=== PATIENT | female | born 1935 | race Caucasian/White ===

== ENCOUNTER → 2017-06-11 13:15 | Outpatient (CLI) | payer MEDICARE, OTHER, SELFPAY ==
--- NOTE | 2017-06-11 13:33 | CT_ITS ---
CT head/brain wo con HISTORY: ITS.REASON: ACUTE POST RAUMATIC HEADACHE, DIPLOPIA ORDERING PHYSICIAN: Jamison Hodges MD PATIENT AGE: 82 years COMPARISON: None TECHNIQUE: Axial images obtained without contrast. Brain and bone windows reviewed. FINDINGS: No midline shift, mass effect, intracranial hemorrhage, hydrocephalus, or extra-axial fluid collection is evident. Low-density changes are present in periventricular and subcortical region consistent with ischemic gliotic change from microvascular disease. The calvarium has an unremarkable appearance. No mastoid effusion. No sinus air-fluid levels.. IMPRESSION: 1. No acute finding. 2. Chronic microvascular ischemic gliotic changes.
== END ==
PROVIDERS: PCP Internal Medicine Adolescent Medicine; Visit Provider Internal Medicine Adolescent Medicine
DX: G44.319 Acute post-traumatic headache, not intractable (principal); H53.2 Diplopia
CPT/HCPCS: 70450

== ENCOUNTER → 2017-08-13 09:48 | Outpatient (CLI) | payer MEDICARE, OTHER, SELFPAY ==
--- NOTE | 2017-08-13 09:55 | MM_ITS ---
MM Dig screening mamm BI w/CAD CAD Screening COMPARISON: Analog mammograms from [facility] 11/13/2012 INDICATION: There is no personal or family history of breast cancer. There is been previous biopsy right breast for benign disease. TECHNIQUE: Standard CC and MLO images were obtained. R2 CAD reviewed. FINDINGS: The breasts are composed primarily of fat with minimal scattered fibroglandular densities in each breast. There are somewhat less in adequate compression of the left MLO image likely due to the cardiac pacemaker seen in the axillary tail of the breast. There is faint arterial calcification in each breast, there is a mole marker left breast. There is no suspicious lesion and no suspicious microcalcifications. IMPRESSION: Fatty type breast parenchyma with no suspicious lesion seen BI-RADS Category: 2 Benign Finding(s) RECOMMENDED FOLLOW-UP: 1YR - 1 YEAR FOLLOW-UP (A letter has been sent to the patient regarding results of the study.)
== END ==
PROVIDERS: PCP Internal Medicine Adolescent Medicine; Visit Provider Nurse Practitioner Family
DX: Z12.31 Encounter for screening mammogram for malignant neoplasm of breast (principal)
CPT/HCPCS: 77067

== ENCOUNTER → 2018-01-15 12:30 | Outpatient (CLI) | payer MEDICARE, OTHER, SELFPAY ==
--- NOTE | 2018-01-15 12:32 | CA_ITS ---
PROCEDURE: 2-D M-mode and color Doppler study INDICATIONS FOR THE TEST: Chest pain COPD+ Heart Murmur Tobacco Smokingex Palpitations Fatigue Syncope Edema Hypertension+Diabetes Mellitus Rheumatic Fever SOB+OBRIEN Obesity Hyperlipidemia+ Family History HD Additional History O2, Pacemaker, ablation PATIENT INFORMATION HEIGHT: 63 WEIGHT: 183 GENDER: Female B/P: 118/52 2-D/M-MODE INTERPRETATION: 2-D MEASUREMENTS OBSERVED VALUES IN CMS Right Ventricular Dimension (RVDd) 3.6 Interventricular Septum (Thickness)(IVsd) 1.1 Left Ventricular Internal Dimensions(LVIDd) 4.8 Left Ventricular Posterior Wall (Thickness)(LVPWd) 1.0 Aortic Root 3.2 Aortic Cusp Separation 2.2 Left Atrial Dimensions (LAD) 4.0 2D 1. Left atrium is moderately enlarged, left ventricle is normal size, mild concentric left ventricular hypertrophy, visually estimated ejection fraction 55% with no obvious regional wall motion abnormality. 2. The right atrium and right ventricle are moderately enlarged with normal contractility, there is a pacemaker lead seen in the right atrium and right ventricle. 3. The aortic valve is thickened and fibrosed, leaflet continue to display mobility. 4. The mitral and tricuspid valve leaflets are minimally thickened. 5. The pulmonic valve is poorly visualized. 6. No significant pericardial effusion noted. DOPPLER INTERROGATION: Doppler interrogation of the aortic, mitral and tricuspid valvular presence of moderate aortic, moderate mitral and mild tricuspid regurgitation, calculated right ventricular systolic pressure is 40 mmHg consistent with mild pulmonary hypertension, diastolic parameters are inconclusive. CONCLUSION: 1. Moderately enlarged left atrium, normal left ventricular size, mild concentric left ventricular hypertrophy, visually estimated ejection fraction 55% with no obvious regional wall motion abnormality, diastolic parameters are inconclusive. 2. Moderately enlarged right ventricle with normal contractility. 3. Moderate aortic, moderate mitral and mild tricuspid regurgitation, calculated right ventricular systolic pressure is 40 mmHg consistent with mild pulmonary hypertension. 4. No significant pericardial effusion noted.
== END ==
PROVIDERS: PCP Internal Medicine Adolescent Medicine; Visit Provider Internal Medicine
DX: R06.09 Other forms of dyspnea (principal)
CPT/HCPCS: 93306

== ENCOUNTER → 2018-02-18 11:48 | Outpatient (CLI) | payer MEDICARE, OTHER, SELFPAY ==
[2018-02-18 12:05] LABS: Basophils % 0.6 % (0.1-2.0); Eosinophils # 0.2 K/mm3 (0.0-0.4); Eosinophils % 2.7 % (0.1-12.0); Hematocrit 36.3 % (37.0-47.0); Hemoglobin 11.3 g/dL (12.2-16.2); Lymphocytes # 1.1 K/mm3 (0.7-4.5); Lymphocytes % 15.7 K/mm3 (10-50); Mean Corpuscular HGB Conc 31.1 g/dL (31.8-35.4); Mean Corpuscular Hemoglobin 31.7 pg (27.0-31.2); Mean Platelet Volume 9.1 fl (7.4-10.4); Monocytes # 0.3 K/mm3 (0.1-1.0); Monocytes % 4.2 % (1.7-9.3); Neutrophils # 5.2 K/mm3 (1.8-7.8); Neutrophils % 76.9 % (37.0-80.0); Platelet Count 184 K/mm3 (142-424); Red Blood Count 3.56 M/mm3 (4.20-5.40); Red Cell Distribution Width 13.8 % (11.5-17.5); White Blood Count 6.8 K/mm3 (4.8-10.8)
[2018-02-18 14:54] LABS: Anion Gap 14.9 mEq/L (5-15); Blood Urea Nitrogen 38 mg/dL (7-18); Calcium 8.9 mg/dL (8.5-10.1); Carbon Dioxide 25 mmol/L (21.0-32.0); Chloride 111 mmol/L (98-107); Creatinine,Serum 2.37 mg/dL (0.55-1.02); Estimated Glomerular Filt Rate 20 ml/min (>60); GFR (African American) 24 ML/MIN (>60); Glucose 134 mg/dL (74-106); Potassium 5.9 mmoL/L (3.5-5.1); Sodium 145 mmol/L (136-145)
== END ==
PROVIDERS: PCP Internal Medicine Adolescent Medicine; Visit Provider Physician Assistant
DX: I11.9 Hypertensive heart disease without heart failure (principal); I42.9 Cardiomyopathy, unspecified; I48.91 Unspecified atrial fibrillation; Z95.0 Presence of cardiac pacemaker; I50.43 Acute on chronic combined systolic (congestive) and diastolic (congestive) heart failure; I34.0 Nonrheumatic mitral (valve) insufficiency
CPT/HCPCS: 36415; 80048; 83880; 85025

== ENCOUNTER 2018-03-15 15:28 | Inpatient (IN) ==
[2018-03-15 16:08] LABS: Basophils % 0.3 % (0.1-2.0); Eosinophils # 0.1 K/mm3 (0.0-0.4); Eosinophils % 1.8 % (0.1-12.0); Hematocrit 30.7 % (37.0-47.0); Hemoglobin 9.4 g/dL (12.2-16.2); Lymphocytes % 13.7 K/mm3 (10-50); Mean Corpuscular HGB Conc 30.8 g/dL (31.8-35.4); Mean Corpuscular Hemoglobin 29.9 pg (27.0-31.2); Mean Corpuscular Volume 97.4 fl (81-99); Mean Platelet Volume 7.8 fl (7.4-10.4); Monocytes # 0.3 K/mm3 (0.1-1.0); Monocytes % 4.7 % (1.7-9.3); Neutrophils # 5.6 K/mm3 (1.8-7.8); Neutrophils % 79.5 % (37.0-80.0); Platelet Count 315 K/mm3 (142-424); Red Blood Count 3.15 M/mm3 (4.20-5.40); Red Cell Distribution Width 14.8 % (11.5-17.5)
[2018-03-15 16:27] LABS: Alanine Aminotransferase 13 U/L (12-78); Albumin Level 2.9 gm/dL (3.4-5.0); Albumin/Globulin Ratio 0.7 (1.1-1.8); Alkaline Phosphatase 142 U/L (46-116); Anion Gap 15.9 mEq/L (5-15); Aspartate Amino Transferase 10 U/L (15-37); Bilirubin,Total 0.5 mg/dL (0.2-1.0); Blood Urea Nitrogen 12 mg/dL (7-18); Calcium 8.2 mg/dL (8.5-10.1); Carbon Dioxide 27 mmol/L (21.0-32.0); Chloride 105 mmol/L (98-107); Glucose 128 mg/dL (74-106); Potassium 3.9 mmoL/L (3.5-5.1); Sodium 144 mmol/L (136-145); Total Protein,Serum 6.9 gm/dL (6.4-8.2)
--- NOTE | 2018-03-15 16:27 | Emergency Department Note ---
ED Disposition Clinical Impression: Community acquired pneumonia Qualifiers: Laterality: right Lung location: lower lobe of lung Qualified Code(s): J18.1 - Lobar pneumonia, unspecified organism Disposition: Still a Patient Condition on Discharge: Fair - Critical Care Critical Care Time: No Attestation: On 03/15/18, the high probability of a clinically significant, sudden or life threatening deterioration of the following system(s) required my full and direct attention, intervention and personal management. The time I documented below is in addition to time spent performing reported procedures but includes the following listed in this critical care notation. Medical Decision Making - Ramesh Inquiry Pt receiving controlled substance: No Vital Signs: 03/15/18 15:29 03/15/18 16:23 Temperature 100.3 F H Temperature Source Oral Pulse Rate [Left Radial] 71 73 Respiratory Rate 22 Blood Pressure [Right Arm] 123/69 121/81 Blood Pressure Mean [Right Arm] 87 94 Blood Pressure Source [Right Arm] Automatic Cuff Automatic Cuff Blood Pressure Position [Right Arm] Sitting Sitting 02 Sat by Pulse Oximetry 96 93 L Oxygen Delivery Method Nasal Cannula Room Air Oxygen Flow Rate (LPM) 3 - Lab Data Lab Results 03/15/18 15:50: WBC 7.0, RBC 3.15 L, Hgb 9.4 L, Hct 30.7 L, MCV 97.4, MCH 29.9, MCHC 30.8 L, RDW 14.8, Plt Count 315, MPV 7.8, Neut % (Auto) 79.5, Lymph % (Auto) 13.7, [place] % (Auto) 4.7, Eos % (Auto) 1.8, Baso % (Auto) 0.3, Neut # (Auto) 5.6, Lymph # (Auto) 1.0, [place] # (Auto) 0.3, Eos # (Auto) 0.1, Baso # (Auto) 0.0 03/15/18 15:50: Sodium 144, Potassium 3.9, Chloride 105, Carbon Dioxide 27, Anion Gap 15.9 H, BUN 12, Creatinine 1.74 H, Estimated Creat Clear 34, Estimated GFR 28 L, Est GFR ( Amer) 34 L, Glucose 128 H, Calcium 8.2 L, Total Bilirubin 0.5, AST 10 L, ALT 13, Alkaline Phosphatase 142 H, Troponin I < 0.02, Total Protein 6.9, Albumin 2.9 L, Globulin 4.0 H, Albumin/Globulin Ratio 0.7 L 03/15/18 15:50: Lactate 2.0 Result diagrams: 03/15/18 15:50 03/15/18 15:50 Orders (Tests/Meds): ORDERS Category Date Time Status XR chest portable Stat Exams 03/15/18 15:36 Taken Blood Culture Stat Micro 03/15/18 16:24 Ordered - Radiology Data #1 Image(s): Chest Image Reviewed: Yes I reviewed the patient's radiology image Right basilar infiltrate - ECG Data Tracing #1 EKG interpreted by Kevin Chen MD: Rhythm: Ventricular paced rhythm Rate: 70 No evidence of acute ischemia or injury - Physician Consults Physician Consulted: Galo Hodges Time: 16:43 Reason -: Admission Comment/Response: Agrees to admit the patient to the hospital. We discussed the patient's clinical information, including history, exam, laboratory and radiology results and ED course. Per hospital procedure, I will write temporary bridge inpatient orders on the patient. Specific orders requested by the admitting physician: Antibiotics, nebulizer treatments. No steroids at this time. General Adult HPI - General Chief complaint: Shortness of Breath/Dyspnea Stated complaint: sob Time Seen by Provider: 03/15/18 16:27 Mode of Arrival: EMS Limitations: No Limitations Description of Symptoms (Recalled from ER Triage Doc. by RN): to ed per squad with c/o cough,sob "always short of breath" x 1 week wears o2 24/7. +fever at home, denies sick contacts. - History of Present Illness HPI narrative: 2-week history of cough and URI symptoms. Short of breath. Has a fever. Seen in this emergency room on 03/01/18. Chest x-ray negative. Treated with Augmentin and cough medication. Has not seen PCP since then. Getting worse over the past week. - Related Data Home Medications Medication Instructions Recorded Confirmed aspirin 81 mg tablet,delayed 81 mg PO QDAY 06/24/17 03/15/18 release ferrous sulfate 325 mg (65 mg 325 mg PO QDAY tab 06/24/17 03/15/18 iron) tablet glimepiride 2 mg tablet 2 mg PO BID tab 06/24/17 03/15/18 budesonide-formoterol HFA 160 2 puff INHALATION Q12H 03/20/18 10/13/18 mcg-4.5 mcg/actuation aerosol inhaler diltiazem ER 60 mg 60 mg PO BID 08/20/17 03/15/18 capsule,extended release 12 hr omeprazole 20 mg capsule,delayed 20 mg PO DAILY cap 08/20/17 03/15/18 release diazePAM [Valium] 2 mg PO BID PRN 12/15/17 03/15/18 furosemide 20 mg tablet 20 mg PO DAILY 03/04/18 03/15/18 Allergies Allergy/AdvReac Type Severity Reaction Status Date / Time alendronate sodium Allergy Mild DIZZINESS Verified 03/04/18 08:42 [From Fosamax] naproxen Allergy Mild SEDATION Verified 03/04/18 08:42 Sulfa (Sulfonamide Allergy Mild NA-NAUSEA Verified 03/04/18 08:42 Antibiotics) hydrocodone [From LORTAB] Allergy Unknown Verified 03/04/18 08:42 [facility] History I have reviewed the patient's past medical history: Yes Medical History: Reports:: Atrial Fibrillation, Cardiomyopathy, Chronic Obstructive Pulmonary Disease (COPD), Diabetes Mellitus Type 2, Home Oxygen, Hyperlipidemia, Internal Pacemaker Denies:: Cancer, Diabetes Mellitus Type 1, MRSA, Seizures Other Surgeries: Yes: Hysterectomy-Total, Pacemaker, Other ([facility]) Amputation: No Fractures: No - Social History Smoking Status: Former smoker Alcohol Intake: never Alcohol Intake Frequency:: 3 or more drinks per day Occupational Status: retired - Psychiatric History Expresses thoughts of harming self/others: None Suicide Plan Description: No Plan Family Hx:: Coronary Artery Disease, Heart Attack ROS Obtained: Yes All systems reviewed & no additional complaints - Constitutional Constitutional: Reports fatigue, Reports fever(s), Reports malaise, Reports weakness - ENT Ears, Nose, Mouth, and Throat: Reports nasal discharge, Reports sore throat - Cardiovascular Cardiovascular: Reports chest pain (Pleuritic) - Respiratory Respiratory: Yes cough, Yes dyspnea Physical Exam - General General appearance: alert, in no apparent distress Comment: Frequent cough - Head Head exam: atraumatic, normocephalic, normal inspection - Eye Eye exam: Present: normal appearance, PERRL, EOMI - ENT ENT exam: Present: mucous membranes moist - Neck Neck exam: Present: normal inspection, full ROM, trachea midline. Absent: meningismus, lymphadenopathy - Chest Chest inspection: Present: normal inspection, symmetric chest wall rise. Ab sent: tenderness - Respiratory Respiratory exam: Present: normal lung sounds bilaterally. Absent: respiratory distress, wheezes - Cardiovascular Cardiovascular exam: Present: regular rate, normal rhythm. Absent: JVD - Abdominal Exam Abdominal exam: Present: soft, normal bowel sounds. Absent: distention, tenderness, guarding - Extremities Exam Extremities exam: Present: normal inspection, full ROM, normal capillary refill - Neurological Exam Neurological exam: Present: alert, oriented X3 - Psychiatric Psychiatric exam: Present: normal affect, normal mood - Skin Skin exam: Present: warm, dry, intact, normal color - Lymphatic Lymphatic Findings: no adenopathy
[2018-03-15 22:01] LABS: Coronavirus 229E Not Detected (NotDetected); Coronavirus NL63 Not Detected (NotDetected); Coronavirus OC43 Not Detected (NotDetected); Coronovirus HKU1,PCR Not Detected (NotDetected)
--- NOTE | 2018-03-16 07:16 | History & Physical Report ---
*Admission Date: 03/15/18 *Chief complaint: Cough with shortness of breath *History of present illness: 83-year-old female with COPD presented to the emergency department with worsening cough and shortness of breath. Patient had been seen in the emergency department approximately 2 weeks earlier and diagnosed with a URI. At that time her x-ray was negative for infiltrate. Upon return to the emergency department yesterday patient admitted that she felt worse and had had low-grade fevers at home to 100.9. She had a dry hacking cough that was nonproductive. Chest x-ray showed a right lower lobe infiltrate. White blood cell count was normal. Patient is O2 dependent at home and oxygen saturations were in the low 90s. Patient was admitted for IV antibiotics. This morning she states she "feels terrible". She has not slept well due to her cough. She feels weak. [facility] History I have reviewed the patient's past medical history: Yes Medical History: Reports:: Atrial Fibrillation, Cardiomyopathy, Chronic Obstructive Pulmonary Disease (COPD), Diabetes Mellitus Type 2, Home Oxygen, Hyperlipidemia, Internal Pacemaker Denies:: Cancer, Diabetes Mellitus Type 1, MRSA, Seizures Other Surgeries: Yes: Hysterectomy-Total, Pacemaker, Other ([facility]) Amputation: No Fractures: No - *Social History Educational Level: Completed Grade School Smoking Status: Former smoker Alcohol Intake: never Alcohol Intake Frequency:: 3 or more drinks per day Occupational Status: retired - Psychiatric History Expresses thoughts of harming self/others: None Suicide Plan Description: No Plan *Family Hx:: Coronary Artery Disease, Heart Attack Review of Systems - Constitutional Reports body ache(s), Reports fever(s), Reports headache(s), Denies chills - *Cardiovascular Denies chest pain - *Respiratory Reports cough, Reports shortness of breath, Reports shortness of breath with activity, Reports wheezing - *Gastrointestinal Denies abdominal pain - *Musculoskeletal Reports joint pain - *Neurologic Reports weakness Meds Home Medications Medication Instructions Recorded Confirmed Type aspirin 81 mg tablet,delayed 81 mg PO QDAY 06/24/17 03/15/18 History release ferrous sulfate 325 mg (65 mg 325 mg PO QDAY tab 06/24/17 03/15/18 History iron) tablet glimepiride 2 mg tablet 2 mg PO BID tab 06/24/17 03/15/18 History budesonide-formoterol HFA 160 2 puff INHALATION Q12H 08/20/17 03/15/18 History mcg-4.5 mcg/actuation aerosol inhaler diltiazem ER 60 mg 60 mg PO BID 08/20/17 03/15/18 History capsule,extended release 12 hr omeprazole 20 mg capsule,delayed 20 mg PO DAILY cap 08/20/17 03/15/18 History release diazePAM [Valium] 2 mg PO BID PRN 12/15/17 03/15/18 History furosemide 20 mg tablet 20 mg PO DAILY 03/04/18 03/15/18 History Allergies Allergy/AdvReac Type Severity Reaction Status Date / Time alendronate sodium Allergy Mild DIZZINESS Verified 03/04/18 08:42 [From Fosamax] naproxen Allergy Mild SEDATION Verified 03/04/18 08:42 Sulfa (Sulfonamide Allergy Mild NA-NAUSEA Verified 03/04/18 08:42 Antibiotics) hydrocodone [From LORTAB] Allergy Unknown Verified 03/04/18 08:42 Exam Vital signs and Labs for Last 24 Hours: Temp Pulse Resp BP Pulse Ox 98.8 F 70 21 98/57 L 96 03/16/18 04:00 03/16/18 06:34 03/16/18 04:00 03/16/18 04:00 03/16/18 06:34 Laboratory Results - last 24 hr 03/15/18 15:50: WBC 7.0, RBC 3.15 L, Hgb 9.4 L, Hct 30.7 L, MCV 97.4, MCH 29.9, MCHC 30.8 L, RDW 14.8, Plt Count 315, MPV 7.8, Neut % (Auto) 79.5, Lymph % (Auto) 13.7, [place] % (Auto) 4.7, Eos % (Auto) 1.8, Baso % (Auto) 0.3, Neut # (Auto) 5.6, Lymph # (Auto) 1.0, [place] # (Auto) 0.3, Eos # (Auto) 0.1, Baso # (Auto) 0.0 03/15/18 15:50: Sodium 144, Potassium 3.9, Chloride 105, Carbon Dioxide 27, Anion Gap 15.9 H, BUN 12, Creatinine 1.74 H, Estimated Creat Clear 34, Estimated GFR 28 L, Est GFR ( Amer) 34 L, Glucose 128 H, Calcium 8.2 L, Total Bilirubin 0.5, AST 10 L, ALT 13, Alkaline Phosphatase 142 H, Troponin I < 0.02, Total Protein 6.9, Albumin 2.9 L, Globulin 4.0 H, Albumin/Globulin Ratio 0.7 L 03/15/18 15:50: Lactate 2.0 03/15/18 21:25: POC Glucose 111 H 03/15/18 21:55: Chlamy pneumoniae PCR Not detected, Adenovirus (PCR) Not detected, B.parapertussis DNA PCR Not detected, Coronavirus OC43 (PCR) Not detected, Coronavirus HKU1 (PCR) Not detected, Coronavirus 229E (PCR) Not detected, Coronavirus NL63 (PCR) Not detected, Human Metapneumovir PCR Not detected, Influenza A (H1) PCR Not detected, Influ A (H1N1/09) PCR Not detected, Influenza A (H3) PCR Not detected, Influenza Type A (PCR) Not detected, Influenza Type B (PCR) Not detected, M. pneumoniae (PCR) Not detected, Parainfluenza 1 (PCR) Not detected, Parainfluenza 2 (PCR) Not detected, Parainfluenza 3 (PCR) Not detected, Parainfluenza 4 (PCR) Not detected, RSV (PCR) Not detected, Entero/Rhino (PCR) Not detected 03/16/18 06:17: POC Glucose 137 H I & O for Last 24 hours: Intake & Output 03/13/18 03/14/18 03/15/18 03/16/18 11:59 11:59 11:59 11:59 Intake Total 120 / 120 Balance 120 / 120 Weight 196 lb 3 oz - Constitutional no acute distress - *Routine HEENT Exam Head: Present: normocephalic Eye: Present: EOMI. Absent: conjunctival icterus, scleral injection ENT: Present: mucous membranes moist - *Routine Neck Exam Present: supple. Absent: carotid bruit - *Routine Respiratory Exam Present: decreased breath sounds, rales (Right lung base), wheezes (Anteriorly and posteriorly) - *Routine Cardiovascular Exam Present: RRR - *Routine Abdominal Exam Present: soft. Absent: tenderness - *Routine Extremities Exam Absent: edema Assessment and Plan (1) COPD with exacerbation Current visit: Yes Status: Acute Category: Medical Code(s): J44.1 - Chronic obstructive pulmonary disease with (acute) exacerbation (2) Community acquired pneumonia Current visit: Yes Status: Acute Qualifiers: Laterality: right Lung location: lower lobe of lung Qualified Code(s): J18.1 - Lobar pneumonia, unspecified organism Category: Medical Code(s): J18.9 - Pneumonia, unspecified organism (3) Presence of biventricular cardiac pacemaker Current visit: No Status: Acute Category: Medical Code(s): Z95.0 - Presence of cardiac pacemaker (4) Mitral regurgitation Current visit: No Status: Chronic Qualifiers: Category: Medical Code(s): I34.0 - Nonrheumatic mitral (valve) insufficiency (5) NYHA class 3 acute on chronic systolic heart failure Current visit: No Status: Chronic Category: Medical Code(s): I50.23 - Acute on chronic systolic (congestive) heart failure - Assessment and plan all Dx Assessment and Plan for all problems:: 1. Continue Rocephin and azithromycin for right lower lobe pneumonia 2. Add Solu-Medrol 60 mg every 8 hours for wheezing due to underlying COPD 3. Patient informed me she gets fluid overloaded very easily so we will hold any intravenous fluids. 4. Add Tessalon for cough 5. Home medications
--- NOTE | 2018-03-16 09:46 | Pharmacy Consult Notes ---
[facility] Pharmacy VTE Monitoring - Patient Demographics Admission date: 03/16/18 Report Date: 03/16/18 Time: 09:45 Allergies/Adverse Reactions: Patient Allergies alendronate sodium [From Fosamax] Allergy (Mild, Verified 03/04/18 08:42) DIZZINESS naproxen Allergy (Mild, Verified 03/04/18 08:42) SEDATION Sulfa (Sulfonamide Antibiotics) Allergy (Mild, Verified 03/04/18 08:42) NA-NAUSEA hydrocodone [From LORTAB] Allergy (Unknown, Verified 03/04/18 08:42) Height: 1.6 m Weight: 88.989 kg Patient Problems: Current Active Problems Community acquired pneumonia (Acute) COPD with exacerbation (Acute) - VTE Risk Labs: VTE Related Lab Results Hgb 9.4 g/dL (12.2-16.2) L 03/15/18 15:50 Hct 30.7 % (37.0-47.0) L 03/15/18 15:50 Plt Count 315 K/mm3 (142-424) 03/15/18 15:50 BUN 12 mg/dL (7-18) 03/15/18 15:50 Creatinine 1.74 mg/dL (0.55-1.02) H 03/15/18 15:50 Estimated Creat Clear 34 mL/min (0-300) 03/15/18 15:50 Was VTE Risk Assessment Performed: Yes VTE Score: 3 VTE Risk Level: Low Risk Clinical Trial Participant: No - Prophylaxis VTE Prophylaxis Ordered?: Yes Types of VTE Prophylaxis: TEDS Knee High
--- NOTE | 2018-03-17 08:16 | Progress Note ---
Internal Medicine - PN: Subj *Date: 03/17/18 *Time: 08:13 Interval history: Overall patient feels much better than she did yesterday. Denies shortness of air at rest, notes that when she gets up to move around she becomes a little bit short of air and has noticed the production of yellow sputu m this morning. Exam Vital signs and Labs for Last 24 Hours: Temp Pulse Resp BP Pulse Ox 98.9 F 71 22 116/48 L 96 03/17/18 07:56 03/17/18 07:56 03/17/18 07:56 03/17/18 07:56 03/17/18 07:56 Laboratory Results - last 24 hr 03/16/18 11:35: POC Glucose 171 H 03/16/18 16:11: POC Glucose 289 H 03/16/18 20:19: POC Glucose 273 H 03/17/18 05:57: POC Glucose 200 H I & O for Last 24 hours: Intake & Output 03/14/18 03/15/18 03/16/18 03/17/18 11:59 11:59 11:59 11:59 Intake Total 360 / 360 1330 / 1330 Output Total 600 / 600 Balance 360 / 360 730 / 730 Weight 196 lb 3 oz Microbiology Reports for the Last 24 Hours: Microbiology 03/16/18 12:39 Sputum - Expectorated Sputum Gram Stain - Final 03/16/18 12:39 Sputum - Expectorated Sputum Sputum Culture - Preliminary Narrative: Patient's wearing oxygen at her baseline. Up on the side of the bed eating breakfast. Minimal rhonchi in both lower lung [place]. However good air movement without w heezing or crackles. Heart rate regular. Trace ankle edema but at her baseline. Patient is alert, oriented. Aurax clear. Neck exam clear. Assessment and Plan (1) COPD with exacerbation Current visit: Yes Status: Acute Category: Medical Code(s): J44.1 - Chronic obstructive pulmonary disease with (acute) exacerbation Significant comorbidities. Continue current plan of care. Check sputum culture. Home O2 dependent given her chronic respiratory failure. No changes in plan. (2) Community acquired pneumonia Current visit: Yes Status: Acute Qualifiers: Laterality: right Lung location: lower lobe of lung Qualified Code(s): J18.1 - Lobar pneumonia, unspecified organism Category: Medical Code(s): J18.9 - Pneumonia, unspecified organism Continue antibiotic therapy. Continue sputum culture monitoring. (3) Presence of biventricular cardiac pacemaker Current visit: No Status: Acute Category: Medical Code(s): Z95.0 - Prese nce of cardiac pacemaker (4) Mitral regurgitation Current visit: No Status: Chronic Qualifiers: Category: Medical Code(s): I34.0 - Nonrheumatic mitral (valve) insufficiency (5) NYHA class 3 acute on chronic systolic heart failure Current visit: No Status: Chronic Category: Medical Code(s): I50.23 - Acute on chronic systolic (congestive) heart failure (6) Diabetes type 2, controlled Current visit: Yes Status: Acute Qualifiers: Diabetes mellitus halfway insulin use: with medical terminologist use Diabetes mellitus complication status: without complication Qualified Code(s): E11.9 - Type 2 diabetes mellitus without complications; Z79.4 - penitentiary (current) use of insulin Category: Medical Code(s): E11.9 - Type 2 diabetes mellitus without comp lications (7) Chronic respiratory failure Current visit: Yes Status: Acute Category: Medical Code(s): J96.10 - Chronic respiratory failure, unspecified whether with hypoxia or hypercapnia (8) Anemia, chronic disease Current visit: Yes Status: Acute Category: Medical Code(s): D63.8 - Anemia in other chronic diseases classified elsewhere
[2018-03-17 08:59] LABS: Basophils % 0.1 % (0.1-2.0); Eosinophils % 0.3 % (0.1-12.0); Hematocrit 30.5 % (37.0-47.0); Hemoglobin 9.2 g/dL (12.2-16.2); Lymphocytes # 0.4 K/mm3 (0.7-4.5); Lymphocytes % 4.8 K/mm3 (10-50); Mean Corpuscular Hemoglobin 29.9 pg (27.0-31.2); Mean Corpuscular Volume 99.6 fl (81-99); Mean Platelet Volume 8.5 fl (7.4-10.4); Monocytes # 0.1 K/mm3 (0.1-1.0); Monocytes % 1.5 % (1.7-9.3); Neutrophils % 93.2 % (37.0-80.0); Platelet Count 359 K/mm3 (142-424); Red Blood Count 3.06 M/mm3 (4.20-5.40); Red Cell Distribution Width 14.6 % (11.5-17.5); White Blood Count 7.5 K/mm3 (4.8-10.8)
[2018-03-17 09:08] LABS: Calcium 8.5 mg/dL (8.5-10.1)
[2018-03-17 09:26] LABS: Lymphocytes % 3 % (10-50); Monocytes % 1 % (2-9); Neutrophils % 96 % (42-76); Total Cells Counted 100
[2018-03-17 09:27] LABS: Hypochromasia 2+
[2018-03-18 06:43] LABS: Basophils % 0.1 % (0.1-2.0); Eosinophils % 0.1 % (0.1-12.0); Hematocrit 31.1 % (37.0-47.0); Hemoglobin 9.3 g/dL (12.2-16.2); Lymphocytes # 0.6 K/mm3 (0.7-4.5); Lymphocytes % 4.2 K/mm3 (10-50); Mean Corpuscular HGB Conc 29.9 g/dL (31.8-35.4); Mean Corpuscular Hemoglobin 29.6 pg (27.0-31.2); Monocytes # 0.3 K/mm3 (0.1-1.0); Neutrophils # 13.9 K/mm3 (1.8-7.8); Neutrophils % 93.6 % (37.0-80.0); Platelet Count 428 K/mm3 (142-424); Red Blood Count 3.14 M/mm3 (4.20-5.40); White Blood Count 14.8 K/mm3 (4.8-10.8)
[2018-03-18 06:59] LABS: Anion Gap 15.7 mEq/L (5-15); Calcium 8.3 mg/dL (8.5-10.1); Potassium 3.7 mmoL/L (3.5-5.1)
--- NOTE | 2018-03-18 08:49 | Discharge Summary ---
General - General Admission date:: 03/16/18 Discharge date: 03/18/18 HPI HPI: 83-year-old female with COPD presented to the emergency department with worsening cough and shortness of breath. Patient had been seen in the emergency department approximately 2 weeks earlier and diagnosed with a URI. At that time her x-ray was negative for infiltrate. Upon return to the emergency department yesterday patient admitted that she felt worse and had had low-grade fevers at home to 100.9. She had a dry hacking cough that was nonproductive. Chest x-ray showed a right lower lobe infiltrate. White blood cell count was normal. Patient is O2 dependent at home and oxygen saturations were in the low 90s. Patient was admitted for IV antibiotics. This morning she states she "feels terrible". She has not slept well due to her cough. She feels weak. Hospital Course Hospital Course: Patient was admitted, placed on IV antibiotics and steroids. Did well with this. Did have a little bit of fluid overload which was treated Lasix with good response the second day of her hospitalization. Chest x-ray showed improvement. This morning she was back to her baseline. Very minimal creatinine elevation was noted. This will be followed up in 2 days as an outpatient. Plan will be to discharge home with antibiotics. No steroids, as I think this has caused leukocytosis. She will continue her cardiac medications, short-term follow-up in my office on Saturday with labs at that point. Objective Vital signs: Temp Pulse Resp BP Pulse Ox 98.1 F 71 22 114/58 L 95 03/18/18 03:51 03/18/18 05:49 03/18/18 03:51 03/18/18 03:51 03/18/18 05:49 Narrative: Patient is pleasant, alert, oriented, sitting on the side of the bed, wearing oxygen, comfortable. Good oxygenation. Lungs have good air movement, minimal rhonchi, abdomen soft nontender, minimal edema in legs, at baseline. Heart rate irregular, good rate control. Cranial nerves are symmetric. Power is symmetric in her extremities. Results Labs on day of discharge: Labs from last 24 hours 03/18/18 03/18/18 03/17/18 05:55 05:55 20:16 WBC 14.8 H D RBC 3.14 L Hgb 9.3 L Hct 31.1 L MCV 99.0 MCH 29.6 MCHC 29.9 L RDW 15.0 Plt Count 428 H MPV 8.0 Neut % (Auto) 93.6 H Lymph % (Auto) 4.2 L [place] % (Auto) 2.0 Eos % (Auto) 0.1 Baso % (Auto) 0.1 Neut # (Auto) 13.9 H Lymph # (Auto) 0.6 L [place] # (Auto) 0.3 Eos # (Auto) 0.0 Baso # (Auto) 0.0 Total Counted Neutrophils % (Manual) Lymphocytes % (Manual) Monocytes % (Manual) Platelet Estimate Hypochromasia Sodium 143 Potassium 3.7 Chloride 107 Carbon Dioxide 24 Anion Gap 15.7 H BUN 32 H D Creatinine 2.22 H Estimated Creat Clear 29 Estimated GFR 21 L Est GFR ( Amer) 26 L Glucose 212 H POC Glucose 265 H Calcium 8.3 L 03/17/18 03/17/18 03/17/18 17:07 12:03 08:40 WBC RBC Hgb Hct MCV MCH MCHC RDW Plt Count MPV Neut % (Auto) Lymph % (Auto) [place] % (Auto) Eos % (Auto) Baso % (Auto) Neut # (Auto) Lymph # (Auto) [place] # (Auto) Eos # (Auto) Baso # (Auto) Total Counted Neutrophils % (Manual) Lymphocytes % (Manual) Monocytes % (Manual) Platelet Estimate Hypochromasia Sodium 143 Potassium 4.0 Chloride 107 Carbon Dioxide 25 Anion Gap 15.0 BUN 23 H D Creatinine 1.98 H Estimated Creat Clear 31 Estimated GFR 24 L Est GFR ( Amer) 29 L Glucose 244 H POC Glucose 244 H 226 H Calcium 8.5 03/17/18 08:40 WBC 7.5 RBC 3.06 L Hgb 9.2 L Hct 30.5 L MCV 99.6 H MCH 29.9 MCHC 30.0 L RDW 14.6 Plt Count 359 MPV 8.5 Neut % (Auto) 93.2 H Lymph % (Auto) 4.8 L [place] % (Auto) 1.5 L Eos % (Auto) 0.3 Baso % (Auto) 0.1 Neut # (Auto) 7.0 Lymph # (Auto) 0.4 L [place] # (Auto) 0.1 Eos # (Auto) 0.0 Baso # (Auto) 0.0 Total Counted 100 Neutrophils % (Manual) 96 H Lymphocytes % (Manual) 3 L Monocytes % (Manual) 1 L Platelet Estimate Normal Hypochromasia 2+ Sodium Potassium Chloride Carbon Dioxide Anion Gap BUN Creatinine Estimated Creat Clear Estimated GFR Est GFR ( Amer) Glucose POC Glucose Calcium Preliminary micro results at discharge 03/17/18 16:59 Sputum Culture - Preliminary Sputum - Expectorated Sputum 03/15/18 16:24 Blood Culture - Preliminary Blood NO GROWTH AFTER 48 HOURS 03/15/18 15:50 Blood Culture - Preliminary Blood NO GROWTH AFTER 48 HOURS DS: Diagnosis - Discharge Diagnosis (1) COPD with exacerbation Status: Acute (2) Community acquired pneumonia Status: Acute (3) Presence of biventricular cardiac pacemaker Status: Acute (4) Mitral regurgitation Status: Chronic (5) NYHA class 3 acute on chronic systolic heart failure Status: Chronic (6) Diabetes type 2, controlled Status: Acute (7) Chronic respiratory failure Status: Acute (8) Anemia, chronic disease Status: Acute Discharge Plan - Patient Discharge Instructions ACTIVITY: Continue current activity DIET: continue same diet - Follow up Plan Follow up with: Martha Rider APRN [Nurse Practitioner] - 03/21/18 Disposition: Home, Self-[facility] Medications: Home Medications Medication Instructions Recorded Confirmed Type aspirin 81 mg tablet,delayed 81 mg PO DAILY 06/24/17 03/16/18 History release ferrous sulfate 325 mg (65 mg 325 mg PO QDAY tab 06/24/17 03/15/18 History iron) tablet glimepiride 2 mg tablet 2 mg PO BID tab 06/24/17 03/15/18 History budesonide-formoterol HFA 160 2 puff INHALATION Q12H 08/20/17 03/15/18 History mcg-4.5 mcg/actuation aerosol inhaler diltiazem ER 60 mg 60 mg PO BID 08/20/17 03/15/18 History capsule,extended release 12 hr omeprazole 20 mg capsule,delayed 20 mg PO DAILY cap 08/20/17 03/15/18 History release diazePAM [Valium] 2 mg PO BID PRN 12/15/17 03/15/18 History furosemide 20 mg tablet 20 mg PO BID 03/04/18 03/16/18 History Atorvastatin Calcium [Atorvastatin 40 mg PO HS 03/16/18 03/16/18 History 40mg Tab] Potassium Chloride 20 meq PO DAILY 03/16/18 03/16/18 History Prescriptions/Medication Reconciliation: New Azithromycin [Zithromax 250mg tab] 250 mg PO DIRECTED #6 tab Cefdinir [Omnicef 300mg Capsule] 300 mg PO BID #14 cap predniSONE [Deltasone 20mg tablet] 20 mg PO DAILY 5 Days #5 tab Continue ferrous sulfate 325 mg (65 mg iron) tablet 325 mg PO QDAY tab glimepiride 2 mg tablet 2 mg PO BID tab budesonide-formoterol HFA 160 mcg-4.5 mcg/actuation aerosol inhaler 2 puff INHALATION Q12H omeprazole 20 mg capsule,delayed release 20 mg PO DAILY cap furosemide 20 mg tablet 20 mg PO BID aspirin 81 mg tablet,delayed release 81 mg PO DAILY diltiazem ER 60 mg capsule,extended release 12 hr 60 mg PO BID Atorvastatin Calcium [Atorvastatin 40mg Tab] 40 mg PO HS diazePAM [Valium] 2 mg PO BID PRN PRN Reason: spasm Potassium Chloride 20 meq PO DAILY
[2018-03-18 08:56] LABS: Lymphocytes % 3 % (10-50); Monocytes % 2 % (2-9); Neutrophils % 95 % (42-76); Total Cells Counted 100
[2018-03-18 08:57] LABS: Hypochromasia 2+
== END 2018-03-18 10:39 | disposition home or self-care (01) ==
LOC: ER 15:28 → 2ND 15:28
PROVIDERS: ADMIT Family Medicine; ATTEND Internal Medicine Adolescent Medicine
CPT/HCPCS: 36415; 71010; 71020; 71045; 71046; 80048; 80053; 82962; 83605; 84484; 85007; 85025; 87040; 87070; 87205; 87486; 87581; 87633; 87798; 93005; 94640; 94760; 94761; 96365; 96366; 99284; G0378; J0456

== ENCOUNTER 2018-03-21 12:25 | Observation (INO) ==
--- NOTE | 2018-03-21 13:42 | Pharmacy Consult Notes ---
[facility] Pharmacy VTE Monitoring - Patient Demographics Admission date: 03/21/18 Report Date: 03/21/18 Time: 13:42 Allergies/Adverse Reactions: Patient Allergies alendronate sodium [From Fosamax] Allergy (Mild, Verified 03/04/18 08:42) DIZZINESS naproxen Allergy (Mild, Verified 03/04/18 08:42) SEDATION Sulfa (Sulfonamide Antibiotics) Allergy (Mild, Verified 03/04/18 08:42) NA-NAUSEA hydrocodone [From LORTAB] Allergy (Unknown, Verified 03/04/18 08:42) - VTE Risk Clinical Trial Participant: No - Prophylaxis VTE Prophylaxis Ordered?: Yes Types of VTE Prophylaxis: TEDS Knee High
--- NOTE | 2018-03-21 14:41 | History & Physical Report ---
*Admission Date: 03/21/18 <Martha Rider 03/21/18 14:41> *Chief complaint: shortness of breath, weakness, LE edema <Martha Rider 03/21/18 14:41> *History of present illness: 83 year old female with a history of CHF with BI-V PPM, A. Fib, COPD, chronic anemia and CKD who is home O2 dependent was seen today in PCP office for Hospital FU. Patient was recently admitted for CHF and pneumonia. She was discharged from [facility] on 03/18 on prednisone, azithromycin and cefdinir. Patient reports shortness of breath and LE edema have increased since discharge. She has become increasingly weak and unsteady. In the office, she was stumbled into the wall when attempting to ambulate into the exam room. She had conversational dyspnea every 2-3 words. Lung exam with crackles in bases and rhonchi/wheezes throughout. Patient was direct admitted for IV antibiotics, diuresis and further evaluation. <Martha Rider 03/21/18 14:52> [facility] History I have reviewed the patient's past medical history: Yes <Martha Rider 03/21/18 14:46> Medical History: Reports:: Atrial Fibrillation, Cardiomyopathy, Chronic Obstructive Pulmonary Disease (COPD), Diabetes Mellitus Type 2, Home Oxygen, H yperlipidemia, Internal Pacemaker Denies:: Cancer, Diabetes Mellitus Type 1, MRSA, Seizures <Martha Rider 03/21/18 14:41> Other Surgeries: Yes: Hysterectomy-Total, Pacemaker, Other (LHC) <Martha Rider 03/21/18 14:41> Amputation: No <Martha Rider 03/21/18 14:41> Fractures: No <Martha Rider 03/21/18 14:41> - *Social History Smoking Status: Former smoker <Martha Rider 03/21/18 14:41> Alcohol Intake: never <Martha Rider 03/21/18 14:41> Alcohol Intake Frequency:: 3 or more drinks per day <Martha Rider 03/21/18 14:41> Occupational Status: retired <Martha Rider 03/21/18 14:41> *Family Hx:: Coronary Artery Disease, Heart Attack <Martha Rider - 03/21/18 14:41> Review of Systems - Review of Systems Review of systems:: pertinent systems reviewed and negative unless documented below <Martha Rider - 03/21/18 14:46> - *Cardiovascular Reports shortness of breath, Reports leg swelling <Martha Rider - 03/21/18 14:46> - *Respiratory Reports cough, Reports shortness of breath <Martha Rider - 03/21/18 14:46> Meds Home Medications Medication Instructions Recorded Confirmed Type aspirin 81 mg tablet,delayed 81 mg PO DAILY 06/24/17 03/21/18 History release ferrous sulfate 325 mg (65 mg 325 mg PO QDAY tab 06/24/17 03/21/18 History iron) tablet budesonide-formoterol HFA 160 2 puff INHALATION Q12H 08/20/17 03/21/18 History mcg-4.5 mcg/actuation aerosol inhaler diltiazem ER 60 mg 60 mg PO BID 08/20/17 03/21/18 History capsule,extended release 12 hr omeprazole 20 mg capsule,delayed 20 mg PO DAILY cap 08/20/17 03/21/18 History release RX: diazePAM [Valium] 2 mg PO BID PRN 12/15/17 03/21/18 History furosemide 20 mg tablet 20 mg PO BID 03/04/18 03/21/18 History multivitamin tablet 1 tab PO DAILY 03/20/18 03/21/18 History Azithromycin [Zithromax 250mg 250 mg PO DIRECTED 03/21/18 03/21/18 History tab] RX: Cefdinir [Omnicef 300mg 300 mg PO BID 03/21/18 03/21/18 History Capsule] RX: predniSONE [Deltasone 20mg 20 mg PO DAILY 03/21/18 03/21/18 History tablet] <Román Multani - 03/22/18 07:15> Allergies Allergy/AdvReac Type Severity Reaction Status Date / Time alendronate sodium Allergy Mild DIZZINESS Verified 03/04/18 08:42 [From Fosamax] naproxen Allergy Mild SEDATION Verified 03/04/18 08:42 Sulfa (Sulfonamide Allergy Mild NA-NAUSEA Verified 03/04/18 08:42 Antibiotics) hydrocodone [From LORTAB] Allergy Unknown Verified 03/04/18 08:42 <Román Multani - 03/22/18 07:15> Exam Vital signs and Labs for Last 24 Hours: Temp Pulse Resp BP Pulse Ox 98.1 F 79 22 121/64 94 L 03/22/18 04:00 03/22/18 06:05 03/22/18 04:00 03/22/18 04:00 03/22/18 06:05 Laboratory Results - last 24 hr 03/21/18 14:18: WBC 10.7, RBC 2.89 L, Hgb 9.4 L, Hct 28.2 L, MCV 97.7, MCH 32.7 H, MCHC 33.5, RDW 15.4, Plt Count 331, MPV 7.3 L, Neut % (Auto) 91.8 H, Lymph % (Auto) 5.5 L, [place] % (Auto) 2.2, Eos % (Auto) 0.2, Baso % (Auto) 0.2, Neut # (Auto) 9.8 H, Lymph # (Auto) 0.6 L, [place] # (Auto) 0.2, Eos # (Auto) 0.0, Baso # (Auto) 0.0, Total Counted 100, Neutrophils % (Manual) 92 H, Lymphocytes % (Manual) 7 L, Monocytes % (Manual) 1 L, Platelet Estimate Normal, RBC Morphology Normal 03/21/18 14:18: Sodium 144, Potassium 3.8, Chloride 106, Carbon Dioxide 28, Anion Gap 13.8, BUN 25 H, Creatinine 1.69 H, Estimated Creat Clear 35, Estimated GFR 29 L, Est GFR ( Amer) 35 L, Glucose 198 H, Calcium 8.1 L, Total Bilirubin 0.6, AST 15, ALT 28, Alkaline Phosphatase 135 H, Total Protein 6.7, Albumin 3.1 L, Globulin 3.6 H, Albumin/Globulin Ratio 0.9 L <Román Multani - 03/22/18 07:15> Temp Pulse Resp BP Pulse Ox 98.0 F 71 20 132/85 93 L 03/21/18 13:51 03/21/18 13:51 03/21/18 13:51 03/21/18 13:51 03/21/18 13:51 <Martha Rider - 03/21/18 14:41> I & O for Last 24 hours: Intake & Output 03/19/18 03/20/18 03/21/18 03/22/18 23:59 23:59 23:59 23:59 Intake Total 360 / 360 Output Total 1450 / 1450 Balance -1090 / -1090 Weight 84.538 kg 83.659 kg <Román Multani - 03/22/18 07:15> Intake & Output 03/19/18 03/20/18 03/21/18 03/22/18 11:59 11:59 11:59 11:59 Weight 186 lb 6 oz <Martha Rider - 03/21/18 14:41> Microbiology Reports for the Last 24 Hours: Microbiology 03/21/18 18:30 Sputum - Expectorated Sputum Gram Stain - Final <Román Multani - 03/22/18 07:15> Narrative: Chronically ill, elderly female in mild distress. Alert and oriented x3. No acute neuro deficits. Irregular rhythm, no murmur, 1-2+ BLE. No JVD. Conversational dyspnea at 2-3 words, increased WOB. Lung sounds with crackles bilateral bases, rhonchi and wheezes scattered throughout. Abdomen soft and nontender. ENT exam unremarkable. Skin pale, warm and dry. <Martha Rider - 03/21/18 14:52> Assessment and Plan (1) Pneumonia Current visit: Yes Status: Acute Category: Medical Code(s): J18.9 - Pneumonia, unspecified organism (2) Atrial fibrillation Current visit: No Status: Suspected Qualifiers: Atrial fibrillation type: chronic Qualified Code(s): I48.2 - Chronic atrial fibrillation Category: Medical Code(s): I48.91 - Unspecified atrial fibrillation (3) COPD with exacerbation Current visit: No Status: Acute Category: Medical Code(s): J44.1 - Chronic obstructive pulmonary disease with (acute) exacerbation (4) CRF (chronic renal failure) Current visit: No Status: Chronic Qualifiers: Chronic kidney disease stage: stage 3 (moderate) Qualified Code(s): N18.3 - Chronic kidney disease, stage 3 (moderate) Category: Medical Code(s): N18.9 - Chronic kidney disease, unspecified (5) Cardiomyopathy Current visit: No Status: Chronic Qualifiers: Cardiomyopathy type: other Qualified Code(s): I42.8 - Other cardiomyopathies Category: Medical Code(s): I42.9 - Cardiomyopathy, unspecified (6) NYHA class 3 acute on chronic systolic heart failure Current visit: No Status: Chronic Category: Medical Code(s): I50.23 - Acute on chronic systolic (congestive) heart failure <Román Multani - 03/22/18 07:15> (1) Pneumonia Current visit: Yes Status: Acute Category: Medical Code(s): J18.9 - Pneumonia, unspecified organism (2) Atrial fibrillation Current visit: No Status: Suspected Qualifiers: Atrial fibrillation type: chronic Qualified Code(s): I48.2 - Chronic atrial fibrillation Category: Medical Code(s): I48.91 - Unspecified atrial fibrillation (3) COPD with exacerbation Current visit: No Status: Acute Category: Medical Code(s): J44.1 - Chronic obstructive pulmonary disease with (acute) exacerbation (4) CRF (chronic renal failure) Current visit: No Status: Chronic Qualifiers: Chronic kidney disease stage: stage 3 (moderate) Qualified Code(s): N18.3 - Chronic kidney disease, stage 3 (moderate) Category: Medical Code(s): N18.9 - Chronic kidney disease, unspecified (5) Cardiomyopathy Current visit: No Status: Chronic Qualifiers: Cardiomyopathy type: other Qualified Code(s): I42.8 - Other cardiomyopathies Category: Medical Code(s): I42.9 - Cardiomyopathy, unspecified (6) NYHA class 3 acute on chronic systolic heart failure Current visit: No Status: Chronic Category: Medical Code(s): I50.23 - Acute on chronic systolic (congestive) heart failure <Martha Rider - 03/21/18 14:47> - Assessment and plan all Dx Assessment and Plan for all problems:: Agree with assessment and plan by FOUNDER AND CHIEF TECHNICAL OFFICER. Personally examined patient on day of admission. <Román Multani - 03/22/18 07:15> Initiate HCAP protocol. Lasix IV x 1 as labs are pending. Continue oxygen at 2L/NC. <Martha Rider - 03/21/18 14:52>
[2018-03-21 14:42] LABS: Basophils % 0.2 % (0.1-2.0); Eosinophils % 0.2 % (0.1-12.0); Hematocrit 28.2 % (37.0-47.0); Hemoglobin 9.4 g/dL (12.2-16.2); Lymphocytes # 0.6 K/mm3 (0.7-4.5); Lymphocytes % 5.5 K/mm3 (10-50); Mean Corpuscular HGB Conc 33.5 g/dL (31.8-35.4); Mean Corpuscular Hemoglobin 32.7 pg (27.0-31.2); Mean Corpuscular Volume 97.7 fl (81-99); Mean Platelet Volume 7.3 fl (7.4-10.4); Monocytes # 0.2 K/mm3 (0.1-1.0); Monocytes % 2.2 % (1.7-9.3); Neutrophils # 9.8 K/mm3 (1.8-7.8); Neutrophils % 91.8 % (37.0-80.0); Platelet Count 331 K/mm3 (142-424); Red Blood Count 2.89 M/mm3 (4.20-5.40); Red Cell Distribution Width 15.4 % (11.5-17.5); White Blood Count 10.7 K/mm3 (4.8-10.8)
[2018-03-21 14:53] LABS: Albumin Level 3.1 gm/dL (3.4-5.0); Albumin/Globulin Ratio 0.9 (1.1-1.8); Anion Gap 13.8 mEq/L (5-15); Bilirubin,Total 0.6 mg/dL (0.2-1.0); Calcium 8.1 mg/dL (8.5-10.1); Globulin 3.6 gm/dl (1.3-3.2); Potassium 3.8 mmoL/L (3.5-5.1); Total Protein,Serum 6.7 gm/dL (6.4-8.2)
[2018-03-21 15:20] LABS: Lymphocytes % 7 % (10-50); Monocytes % 1 % (2-9); Neutrophils % 92 % (42-76); Total Cells Counted 100
[2018-03-21 15:21] LABS: RBC Morphology Normal
[2018-03-22 08:08] LABS: Basophils % 0.3 % (0.1-2.0); Eosinophils # 0.1 K/mm3 (0.0-0.4); Eosinophils % 1.8 % (0.1-12.0); Hemoglobin 9.9 g/dL (12.2-16.2); Lymphocytes # 1.3 K/mm3 (0.7-4.5); Lymphocytes % 16.2 K/mm3 (10-50); Mean Corpuscular HGB Conc 31.1 g/dL (31.8-35.4); Mean Corpuscular Hemoglobin 30.2 pg (27.0-31.2); Mean Corpuscular Volume 96.9 fl (81-99); Mean Platelet Volume 7.3 fl (7.4-10.4); Monocytes # 0.3 K/mm3 (0.1-1.0); Monocytes % 4.1 % (1.7-9.3); Neutrophils # 6.1 K/mm3 (1.8-7.8); Neutrophils % 77.7 % (37.0-80.0); Platelet Count 300 K/mm3 (142-424); Red Cell Distribution Width 15.6 % (11.5-17.5); White Blood Count 7.9 K/mm3 (4.8-10.8)
[2018-03-22 08:19] LABS: Anion Gap 15.1 mEq/L (5-15); Calcium 7.7 mg/dL (8.5-10.1); Potassium 3.1 mmoL/L (3.5-5.1)
--- NOTE | 2018-03-22 09:09 | Progress Note ---
Internal Medicine - PN: Subj *Date: 03/22/18 *Time: 09:05 Interval history: Patient had good response to Lasix yesterday with -1 L fluid status and and -1 kg of weight loss. Tolerating regular diet states she feels a little less short of breath this morning. Remained afebrile, hemodynamically stable. Denies any chest pain, nausea, vomiting, diarrhea, rash, worsening edema in lower extremities. She thinks her legs are a little less swollen today. Otherwise spunky and feeling fairly well, though not at her baseline part Exam Vital signs and Labs for Last 24 Hours: Temp Pulse Resp BP Pulse Ox 98.0 F 71 18 113/55 L 97 03/22/18 08:00 03/22/18 08:00 03/22/18 08:00 03/22/18 08:00 03/22/18 08:00 Laboratory Results - last 24 hr 03/21/18 14:18: WBC 10.7, RBC 2.89 L, Hgb 9.4 L, Hct 28.2 L, MCV 97.7, MCH 32.7 H, MCHC 33.5, RDW 15.4, Plt Count 331, MPV 7.3 L, Neut % (Auto) 91.8 H, Lymph % (Auto) 5.5 L, [place] % (Auto) 2.2, Eos % (Auto) 0.2, Baso % (Auto) 0.2, Neut # (Auto) 9.8 H, Lymph # (Auto) 0.6 L, [place] # (Auto) 0.2, Eos # (Auto) 0.0, Baso # (Auto) 0.0, Total Counted 100, Neutrophils % (Manual) 92 H, Lymphocytes % (Manual) 7 L, Monocytes % (Manual) 1 L, Platelet Estimate Normal, RBC Morphology Normal 03/21/18 14:18: Sodium 144, Potassium 3.8, Chloride 106, Carbon Dioxide 28, Anion Gap 13.8, BUN 25 H, Creatinine 1.69 H, Estimated Creat Clear 35, Estimated GFR 29 L, Est GFR ( Amer) 35 L, Glucose 198 H, Calcium 8.1 L, Total Bilirubin 0.6, AST 15, ALT 28, Alkaline Phosphatase 135 H, Total Protein 6.7, Albumin 3.1 L, Globulin 3.6 H, Albumin/Globulin Ratio 0.9 L 03/22/18 07:05: WBC 7.9 D, RBC 3.30 L, Hgb 9.9 L, Hct 32.0 L, MCV 96.9, MCH 30.2, MCHC 31.1 L, RDW 15.6, Plt Count 300, MPV 7.3 L, Neut % (Auto) 77.7, Lymph % (Auto) 16.2, [place] % (Auto) 4.1, Eos % (Auto) 1.8, Baso % (Auto) 0.3, Neut # (Auto) 6.1, Lymph # (Auto) 1.3, [place] # (Auto) 0.3, Eos # (Auto) 0.1, Baso # (Auto) 0.0 03/22/18 07:05: Sodium 145, Potassium 3.1 L, Chloride 104, Carbon Dioxide 29, Anion Gap 15.1 H, BUN 29 H, Creatinine 2.02 H, Estimated Creat Clear 29, Estimated GFR 24 L, Est GFR ( Amer) 29 L, Glucose 121 H D, Calcium 7.7 L I & O for Last 24 hours: Intake & Output 03/19/18 03/20/18 03/21/18 03/22/18 23:59 23:59 23:59 23:59 Intake Total 360 / 360 240 / 240 Output Total 1450 / 1450 Balance -1090 / -1090 240 / 240 Weight 84.538 kg 83.659 kg Microbiology Reports for the Last 24 Hours: Microbiology 03/21/18 18:30 Sputum - Expectorated Sputum Gram Stain - Final 03/21/18 18:30 Sputum - Expectorated Sputum Sputum Culture - Preliminary - Constitutional no acute distress - *Routine HEENT Exam Head: Present: normocephalic, atraumatic Eye: Present: EOMI, PERRL ENT: Present: mucous membranes moist Comments: NC in place - *Routine Neck Exam Present: supple, full ROM. Absent: JVD - *Routine Respiratory Exam Present: prolonged expiratory phase, wheezes (mild, intermittent), crackles (bilateral bases), diminished air movement (in bases). Absent: accessory muscle use - *Routine Cardiovascular Exam Present: RRR, Normal S1, Normal S2. Absent: murmur - *Routine Abdominal Exam Present: soft, normoactive bowel sounds - *Routine Rectal Exam Patient deferred: visual exam - *Routine Exam Patient deferred: external exam - *Routine Extremities Exam Present: edema (2+ to knees). Absent: cyanosis, clubbing - *Routine Skin Exam Present: intact. Absent: cyanosis, erythema - *Routine Neurological Exam Present: alert, oriented X3, CN II-XII intact. Absent: altered mental status Assessment and Plan (1) Pneumonia Current visit: Yes Status: Acute Qualifiers: Pneumonia type: due to unspecified organism Laterality: bilateral Category: Medical Code(s): J18.9 - Pneumonia, unspecified organism Initially thought to have bilateral pneumonia healthcare acquired. Review of chest x-ray shows no focal consolidations, does have prominent bilateral effusions with cephalization of vasculature suggestive of CHF exacerbation vers us pneumonia. Zosyn for broad coverage -Patient has remained afebrile -Slight improvement in respiratory status with diuresis -Monitor for change -No sputum obtained for culture as patient is not having productive cough (2) Atrial fibrillation Current visit: No Status: Suspected Qualifiers: Atrial fibrillation type: chronic Qualified Code(s): I48.2 - Chronic atrial fibrillation Category: Medical Code(s): I48.91 - Unspecified atrial fibrillation (3) COPD with exacerbation Current visit: No Status: Chronic Category: Medical Code(s): J44.1 - Chronic obstructive pulmonary disease with (acute) exacerbation (4) CRF (chronic renal failure) Current visit: No Status: Chronic Qualifiers: Chronic kidney disease stage: stage 3 (moderate) Qualified Code(s): N18.3 - Chronic kidney disease, stage 3 (moderate) Category: Medical Code(s): N18.9 - Chronic kidney disease, unspecified Monitor daily creatinine, slight bump today though we will continue diuresis as suspect patient is still volume overloaded. Monitor with creatinine every 12 hours for the next 24 hours (5) Cardiomyopathy Current visit: No Status: Chronic Qualifiers: Cardiomyopathy type: other Qualified Code(s): I42.8 - Other cardiomyopathies Category: Medical Code(s): I42.9 - Cardiomyopathy, unspecified (6) NYHA class 3 acute on chronic systolic heart failure Current visit: No Status: Acute Category: Medical Code(s): I50.23 - Acute on chronic systolic (congestive) heart failure Presentation and symptoms more consistent with CHF exacerbation. Continue diuresis today. Goal of -1 L daily. Continue to monitor patient's response and clinical exam with lower extremity edema, shortness of breath, creatinine. -Not meeting medical criteria for discharge at this time
[2018-03-22 16:16] LABS: Anion Gap 11.6 mEq/L (5-15); Calcium 7.9 mg/dL (8.5-10.1); Potassium 3.6 mmoL/L (3.5-5.1)
[2018-03-22 16:27] LABS: Basophils % 0.2 % (0.1-2.0); Eosinophils # 0.2 K/mm3 (0.0-0.4); Eosinophils % 2.5 % (0.1-12.0); Hematocrit 31.4 % (37.0-47.0); Hemoglobin 10.3 g/dL (12.2-16.2); Lymphocytes # 1.1 K/mm3 (0.7-4.5); Lymphocytes % 12.4 K/mm3 (10-50); Mean Corpuscular HGB Conc 32.6 g/dL (31.8-35.4); Mean Corpuscular Hemoglobin 31.8 pg (27.0-31.2); Mean Corpuscular Volume 97.3 fl (81-99); Mean Platelet Volume 8.1 fl (7.4-10.4); Monocytes # 0.3 K/mm3 (0.1-1.0); Monocytes % 3.7 % (1.7-9.3); Neutrophils # 7.3 K/mm3 (1.8-7.8); Neutrophils % 81.2 % (37.0-80.0); Platelet Count 302 K/mm3 (142-424); Red Blood Count 3.23 M/mm3 (4.20-5.40); Red Cell Distribution Width 15.6 % (11.5-17.5); White Blood Count 8.9 K/mm3 (4.8-10.8)
[2018-03-23 06:44] LABS: Anion Gap 11.8 mEq/L (5-15); Calcium 7.7 mg/dL (8.5-10.1); Potassium 3.8 mmoL/L (3.5-5.1)
--- NOTE | 2018-03-23 10:43 | Progress Note ---
Internal Medicine - PN: Subj *Date: 03/23/18 *Time: 10:44 Interval history: Ms. Chu was a little bit more restless overnight. Continued to diurese well with -1 L in the past 24 hours. Says she feels a little bit better this morning. Continue to have cough overnight that became slightly productive. Remains afebrile, hemodynamically stable. Weight is down 2 kg since admission. Discussion this morning with patient at bedside: She states she is interested in going to a nursing facility due to her weakness and difficulty of her family taking care of her at home. She has done this before and found it to be beneficial for her recuperation. She would like to pursue this option for disc harge. Explained to her that we will have physical therapy come see her in the morning and that this sounds reasonable. Exam Vital signs and Labs for Last 24 Hours: Temp Pulse Resp BP Pulse Ox 97.3 F L 71 22 116/55 L 95 03/23/18 07:55 03/23/18 07:55 03/23/18 07:55 03/23/18 07:55 03/23/18 07:55 Laboratory Results - last 24 hr 03/22/18 15:55: WBC 8.9, RBC 3.23 L, Hgb 10.3 L, Hct 31.4 L, MCV 97.3, MCH 31.8 H, MCHC 32.6, RDW 15.6, Plt Count 302, MPV 8.1, Neut % (Auto) 81.2 H, Lymph % (Auto) 12.4, [place] % (Auto) 3.7, Eos % (Auto) 2.5, Baso % (Auto) 0.2, Neut # (Auto) 7.3, Lymph # (Auto) 1.1, [place] # (Auto) 0.3, Eos # (Auto) 0.2, Baso # (Auto) 0.0 03/22/18 15:55: Sodium 143, Potassium 3.6, Chloride 103, Carbon Dioxide 32, Anion Gap 11.6, BUN 28 H, Creatinine 2.21 H, Estimated Creat Clear 26, Estimated GFR 21 L, Est GFR ( Amer) 26 L, Glucose 132 H, Calcium 7.9 L, Magnesium 1.9 03/23/18 06:32: Sodium 144, Potassium 3.8, Chloride 105, Carbon Dioxide 31, Anion Gap 11.8, BUN 32 H, Creatinine 2.10 H, Estimated Creat Clear 28, Estimated GFR 23 L, Est GFR ( Amer) 27 L, Glucose 152 H, Calcium 7.7 L, Magnesium 1.7 D I & O for Last 24 hours: Intake & Output 03/20/18 03/21/18 03/22/18 03/23/18 23:59 23:59 23:59 23:59 Intake Total 360 / 360 720 / 720 580 / 580 Output Total 1450 / 1450 1150 / 1150 1000 / 1000 Balance -1090 / -1090 -430 / -430 -420 / -420 Weight 84.538 kg 83.659 kg 82.917 kg Microbiology Reports for the Last 24 Hours: Microbiology 03/21/18 18:30 Sputum - Expectorated Sputum Gram Stain - Final 03/21/18 18:30 Sputum - Expectorated Sputum Sputum Culture - Final Normal Respiratory Tamara Narrative: - Constitutional no acute distress, sitting in bedside chair with legs elevated - *Routine HEENT Exam Head: Present: normocephalic, atraumatic Eye: Present: EOMI, PERRL ENT: Present: mucous membranes moist Comments: NC in place - *Routine Neck Exam Present: supple, full ROM. Absent: JVD - *Routine Respiratory Exam Present: prolonged expiratory phase, no wheeze on exam today, interval i mprovement in crackles (bilateral bases), diminished air movement (in bases). Absent: accessory muscle use - *Routine Cardiovascular Exam Present: RRR, Normal S1, Normal S2. Absent: murmur - *Routine Abdominal Exam Present: soft, normoactive bowel sounds - *Routine Rectal Exam Patient deferred: visual exam - *Routine Exam Patient deferred: external exam - *Routine Extremities Exam Present: edema (2+ to knees). Absent: cyanosis, clubbing - *Routine Skin Exam Present: intact. Absent: cyanosis, erythema - *Routine Neurological Exam Present: alert, oriented X3, CN II-XII intact. Absent: altered mental status Assessment and Plan (1) Pneumonia Current visit: Yes Status: Acute Qualifiers: Pneumonia type: due to unspecified organism Laterality: bilateral Category: Medical Code(s): J18.9 - Pneumonia, unspecified organism Continue current antibiotics (2) Atrial fibrillation Current visit: No Status: Suspected Qualifiers: Atrial fibrillation type: chronic Qualified Code(s): I48.2 - Chronic atrial fibrillation Category: Medical Code(s): I48.91 - Unspecified atrial fibrillation (3) COPD with exacerbation Current visit: No Status: Chronic Category: Medical Code(s): J44.1 - Chronic obstructive pulmonary disease with (acute) exacerbation (4) CRF (chronic renal failure) Current visit: No Status: Chronic Qualifiers: Chronic kidney disease stage: stage 3 (moderate) Qualified Code(s): N18.3 - Chronic kidney disease, stage 3 (moderate) Category: Medical Code(s): N18.9 - Chronic kidney disease, unspecified (5) Cardiomyopathy Current visit: No Status: Chronic Qualifiers: Cardiomyopathy type: other Qualified Code(s): I42.8 - Other cardiomyopathies Category: Medical Code(s): I42.9 - Cardiomyopathy, unspecified (6) NYHA class 3 acute on chronic systolic heart failure Current visit: No Status: Acute Category: Medical Code(s): I50.23 - Acute on chronic systolic (congestive) heart failure - Assessment and plan all Dx Assessment and Plan for all problems:: Patient seems to be improving. Decreased edema on exam today. Dyspnea at baseline. -Continue breathing treatments as ordered -Diuresis again today goal -1 L -Consult physical therapy to assist with placement/dispo recommendations -Continues to require inpatient management, likely discharge tomorrow
[2018-03-24 06:09] LABS: Anion Gap 9.2 mEq/L (5-15); Calcium 7.9 mg/dL (8.5-10.1); Potassium 4.2 mmoL/L (3.5-5.1)
[2018-03-24 06:12] LABS: Basophils % 0.5 % (0.1-2.0); Eosinophils # 0.4 K/mm3 (0.0-0.4); Eosinophils % 5.2 % (0.1-12.0); Hematocrit 32.1 % (37.0-47.0); Lymphocytes # 1.3 K/mm3 (0.7-4.5); Lymphocytes % 18.5 K/mm3 (10-50); Mean Corpuscular Volume 96.8 fl (81-99); Mean Platelet Volume 8.8 fl (7.4-10.4); Monocytes # 0.3 K/mm3 (0.1-1.0); Monocytes % 4.6 % (1.7-9.3); Neutrophils # 4.8 K/mm3 (1.8-7.8); Neutrophils % 71.2 % (37.0-80.0); Platelet Count 234 K/mm3 (142-424); Red Blood Count 3.32 M/mm3 (4.20-5.40); White Blood Count 6.8 K/mm3 (4.8-10.8)
--- NOTE | 2018-03-24 07:46 | Progress Note ---
Internal Medicine - PN: Subj *Date: 03/24/18 *Time: 07:46 Exam Vital signs and Labs for Last 24 Hours: Temp Pulse Resp BP Pulse Ox 98.6 F 71 22 109/41 L 92 L 03/24/18 04:15 03/24/18 05:57 03/24/18 04:15 03/24/18 04:15 03/24/18 05:57 Laboratory Results - last 24 hr 03/24/18 05:50: WBC 6.8, RBC 3.32 L, Hgb 10.0 L, Hct 32.1 L, MCV 96.8, MCH 30.0, MCHC 31.0 L, RDW 16.0, Plt Count 234, MPV 8.8, Neut % (Auto) 71.2, Lymph % (Auto) 18.5, [place] % (Auto) 4.6, Eos % (Auto) 5.2, Baso % (Auto) 0.5, Neut # (Auto) 4.8, Lymph # (Auto) 1.3, [place] # (Auto) 0.3, Eos # (Auto) 0.4, Baso # (Auto) 0.0 03/24/18 05:50: Sodium 143, Potassium 4.2, Chloride 105, Carbon Dioxide 33 H, Anion Gap 9.2, BUN 26 H, Creatinine 2.07 H, Estimated Creat Clear 28, Estimated GFR 23 L, Est GFR ( Amer) 28 L, Glucose 130 H, Calcium 7.9 L, Magnesium 1.9 D I & O for Last 24 hours: Intake & Output 03/21/18 03/22/18 03/23/18 03/24/18 23:59 23:59 23:59 23:59 Intake Total 360 / 360 720 / 720 1300 / 1300 Output Total 1450 / 1450 1150 / 1150 2900 / 2900 Balance -1090 / -1090 -430 / -430 -1600 / -1600 Weight 84.538 kg 83.659 kg 82.917 kg 82.724 kg Microbiology Reports for the Last 24 Hours: Microbiology 03/21/18 14:18 Blood Blood Culture - Preliminary NO GROWTH AFTER 48 HOURS 03/21/18 14:18 Blood Blood Culture - Preliminary NO GROWTH AFTER 48 HOURS 03/21/18 18:30 Sputum - Expectorated Sputum Gram Stain - Final 03/21/18 18:30 Sputum - Expectorated Sputum Sputum Culture - Final Normal Respiratory Tamara Assessment and Plan (1) Pneumonia Current visit: Yes Status: Acute Qualifiers: Pneumonia type: due to unspecified organism Laterality: bilateral Category: Medical Code(s): J18.9 - Pneumonia, unspecified organism (2) Atrial fibrillation Current visit: No Status: Suspected Qualifiers: Atrial fibrillation type: chronic Qualified Code(s): I48.2 - Chronic atrial fibrillation Category: Medical Code(s): I48.91 - Unspecified atrial fibrillation (3) COPD with exacerbation Current visit: No Status: Chronic Category: Medical Code(s): J44.1 - Chronic obstructive pulmonary disease with (acute) exacerbation (4) CRF (chronic renal failure) Current visit: No Status: Chronic Qualifiers: Chronic kidney disease stage: stage 3 (moderate) Qualified Code(s): N18.3 - Chronic kidney disease, stage 3 (moderate) Category: Medical Code(s): N18.9 - Chronic kidney disease, unspecified (5) Cardiomyopathy Current visit: No Status: Chronic Qualifiers: Cardiomyopathy type: other Qualified Code(s): I42.8 - Other cardiomyopathies Category: Medical Code(s): I42.9 - Cardiomyopathy, unspecified (6) NYHA class 3 acute on chronic systolic heart failure Current visit: No Status: Acute Category: Medical Code(s): I50.23 - Acute on chronic systolic (congestive) heart failure The patient's infection will respond to the chosen ABx?: Yes Is the patient receiving the right drug, dose, and route?: Yes Could a more targeted ABx be ordered?: No
--- NOTE | 2018-03-24 08:47 | Discharge Summary ---
General - General Admission date:: 03/21/18 Discharge date: 03/24/18 HPI HPI: 83 year old female with a history of CHF with BI-V PPM, A. Fib, COPD, chronic anemia and CKD who is home O2 dependent was seen today in PCP office for Hospital FU. Patient was recently admitted for CHF and pneumonia. She was discharged from [facility] on 03/18 on prednisone, azithromycin and cefdinir. Patient reports shortness of breath and LE edema have increased since discharge. She has become increasingly weak and unsteady. In the office, she was stumbled into the wall when attempting to ambulate into the exam room. She had conversational dyspnea every 2-3 words. Lung exam with crackles in bases and rhonchi/wheezes throughout. Patient was direct admitted for IV antibiotics, diuresis and further evaluation. Hospital Course Hospital Course: Patient was admitted and workup was begun. Chest x-ray revealed no evidence of infiltrate and her white count was not elevated. She had mild left-sided pleural effusion on chest x-ray which corresponded to her abnormal exam findings. She responded well to diuresis and felt much improved. She, unfortunately, did not meet Medicare criteria for inpatient stay-even though patient has significant disease burden and an exacerbation of her chronic/terminal disease. Patient did improve but continued to have shortness of air at baseline and with activity. This morning I had a long discussion with her about her options for ongoing care. She had initially expressed some desire to go to long-term care facility but now declines this and wonders about resuming home health, which I think is a good idea. She had some success previously with the [facility] home health program. I also discussed with her her ongoing/intermittent therapy with Entresto. This had been stopped by cardiology service a month ago because of some concerns about worsening chronic kidney disease and since that time she has been in the hospital twice for CHF exacerbations after having gone several months without hospitalization while on the medication. Her kidney function is essentially been floating around the 1.7-2.1 level regardless of Entresto therapy over the past couple of years. I feel that Entresto is less dangerous to her kidneys then high-dose diuretics and we will restart this this morning at low dose and taper up as indicated. Plan will be to discharge home today. We will begin home health therapy for CHF and ataxia/functional decline issues and we will see her in the office on morning, 03/27/18. I would like home health to draw a basic metabolic panel and a CBC on 03/26/18. Given patient's lack of leukocytosis and the lack of infiltrate and lack of fever I will not send her home on antibiotics. Objective Vital signs: Temp Pulse Resp BP Pulse Ox 98.0 F 73 22 119/40 L 96 03/24/18 08:00 03/24/18 08:00 03/24/18 08:00 03/24/18 08:00 03/24/18 08:00 Narrative: Patient is pleasant, alert, oriented x3. Wearing oxygen. Comfortable at rest but dyspneic with activity and moving around the room. Lungs have crackles in the left lower lung field but fairly good air entry. No rhonchi, no wheezing. Heart rate irregular, rate controlled. No peripheral edema. Abdomen soft and nontender. Results Labs on day of discharge: Labs from last 24 hours 03/24/18 03/24/18 05:50 05:50 WBC 6.8 RBC 3.32 L Hgb 10.0 L Hct 32.1 L MCV 96.8 MCH 30.0 MCHC 31.0 L RDW 16.0 Plt Count 234 MPV 8.8 Neut % (Auto) 71.2 Lymph % (Auto) 18.5 [place] % (Auto) 4.6 Eos % (Auto) 5.2 Baso % (Auto) 0.5 Neut # (Auto) 4.8 Lymph # (Auto) 1.3 [place] # (Auto) 0.3 Eos # (Auto) 0.4 Baso # (Auto) 0.0 Sodium 143 Potassium 4.2 Chloride 105 Carbon Dioxide 33 H Anion Gap 9.2 BUN 26 H Creatinine 2.07 H Estimated Creat Clear 28 Estimated GFR 23 L Est GFR ( Amer) 28 L Glucose 130 H Calcium 7.9 L Magnesium 1.9 D Preliminary micro results at discharge 03/21/18 14:18 Blood Culture - Preliminary Blood NO GROWTH AFTER 48 HOURS 03/21/18 14:18 Blood Culture - Preliminary Blood NO GROWTH AFTER 48 HOURS DS: Diagnosis - Discharge Diagnosis (1) Pneumonia Status: Ruled-out (2) Atrial fibrillation Status: Chronic (3) COPD with exacerbation Status: Chronic (4) CRF (chronic renal failure) Status: Chronic (5) Cardiomyopathy Status: Chronic (6) NYHA class 3 acute on chronic systolic heart failure Status: Acute Problem details: Acute on chronic systolic failure (7) Hyperglycemia Status: Acute Problem details: Secondary to steroid therapy (8) Anemia, chronic disease Status: Chronic (9) Chronic kidney disease, stage 3 Status: Chronic Problem details: Secondary to hypertension Discharge Plan - Patient Discharge Instructions ACTIVITY: Continue current activity DIET: low salt diet Additional Instructions: [facility] for PT/OT/home safety evaluation/CHF program. Also to draw labs as ordered on 03/26/18 Patient Instructions: DI for Oxygen Therapy -- Adult, DI for Heart Failure - Follow up Plan Follow up with: Román Multani MD [Primary Care Provider] - 03/27/18 Disposition: Home Health Service Home Medications: Home Medications Medication Instructions Recorded Confirmed Type aspirin 81 mg tablet,delayed 81 mg PO DAILY 06/24/17 03/21/18 History release ferrous sulfate 325 mg (65 mg 325 mg PO DAILY tab 06/24/17 03/22/18 History iron) tablet budesonide-formoterol HFA 160 2 puff INHALATION Q12H 08/20/17 03/21/18 History mcg-4.5 mcg/actuation aerosol inhaler diltiazem ER 60 mg 60 mg PO BID 08/20/17 03/21/18 History capsule,extended release 12 hr omeprazole 20 mg capsule,delayed 20 mg PO DAILY cap 08/20/17 03/21/18 History release diazePAM [Valium] 2 mg PO BID PRN 12/15/17 03/21/18 History furosemide 20 mg tablet 20 mg PO BID 03/04/18 03/21/18 History multivitamin tablet 1 tab PO DAILY 03/20/18 03/21/18 History Azithromycin [Zithromax 250mg 250 mg PO DIRECTED 03/21/18 03/21/18 History tab] Cefdinir [Omnicef 300mg Capsule] 300 mg PO BID 03/21/18 03/21/18 History predniSONE [Deltasone 20mg 20 mg PO DAILY 03/21/18 03/21/18 History tablet] Prescriptions/Medication Reconciliation: New Sacubitril/Valsartan [Entresto 24/26mg Tablet] 1 each PO BID 14 Days #28 tablet Continue ferrous sulfate 325 mg (65 mg iron) tablet 325 mg PO DAILY tab budesonide-formoterol HFA 160 mcg-4.5 mcg/actuation aerosol inhaler 2 puff INHALATION Q12H omeprazole 20 mg capsule,delayed release 20 mg PO DAILY cap furosemide 20 mg tablet 20 mg PO BID multivitamin tablet 1 tab PO DAILY aspirin 81 mg tablet,delayed release 81 mg PO DAILY diltiazem ER 60 mg capsule,extended release 12 hr 60 mg PO BID diazePAM [Valium] 2 mg PO BID PRN PRN Reason: spasm Discontinued predniSONE [Deltasone 20mg tablet] 20 mg PO DAILY Azithromycin [Zithromax 250mg tab] 250 mg PO DIRECTED Cefdinir [Omnicef 300mg Capsule] 300 mg PO BID
== END 2018-03-24 10:45 | disposition home health service (06) ==
LOC: 2ND
PROVIDERS: ADMIT Internal Medicine Adolescent Medicine; ATTEND Internal Medicine Adolescent Medicine
CPT/HCPCS: 36415; 71020; 71046; 80048; 80053; 83735; 85007; 85025; 87040; 87070; 87205; 94640; 94761; 97162; G0378; J2543

== ENCOUNTER → 2018-05-02 11:53 | Outpatient (CLI) | payer MEDICARE, OTHER, SELFPAY ==
[2018-05-02 14:10] LABS: Anion Gap 17.7 mEq/L (5-15); Blood Urea Nitrogen 41 mg/dL (7-18); Calcium 8.9 mg/dL (8.5-10.1); Carbon Dioxide 24 mmol/L (21.0-32.0); Chloride 105 mmol/L (98-107); Creatinine,Serum 2.09 mg/dL (0.55-1.02); Estimated Glomerular Filt Rate 23 ml/min (>60); GFR (African American) 28 ML/MIN (>60); Glucose 135 mg/dL (74-106); Potassium 4.7 mmoL/L (3.5-5.1); Sodium 142 mmol/L (136-145)
== END ==
PROVIDERS: Visit Provider Internal Medicine Cardiovascular Disease
DX: D63.8 Anemia in other chronic diseases classified elsewhere (principal); E11.9 Type 2 diabetes mellitus without complications; I11.9 Hypertensive heart disease without heart failure; I34.0 Nonrheumatic mitral (valve) insufficiency; I35.1 Nonrheumatic aortic (valve) insufficiency; I42.9 Cardiomyopathy, unspecified; I48.91 Unspecified atrial fibrillation; I50.23 Acute on chronic systolic (congestive) heart failure; J18.9 Pneumonia, unspecified organism; J44.1 Chronic obstructive pulmonary disease with (acute) exacerbation; N18.3 Chronic kidney disease, stage 3 (moderate); R60.0 Localized edema
CPT/HCPCS: 36415; 80048

== ENCOUNTER → 2018-09-08 10:58 | Outpatient (CLI) | payer MEDICARE, OTHER, SELFPAY ==
[2018-09-08 12:36] LABS: Anion Gap 18.6 mEq/L (5-15); Blood Urea Nitrogen 40 mg/dL (7-18); Carbon Dioxide 23 mmol/L (21.0-32.0); Chloride 107 mmol/L (98-107); Creatinine,Serum 2.08 mg/dL (0.55-1.02); Estimated Glomerular Filt Rate 23 ml/min (>60); GFR (African American) 28 ML/MIN (>60); Glucose 146 mg/dL (74-106); Potassium 4.6 mmoL/L (3.5-5.1); Sodium 144 mmol/L (136-145)
== END ==
PROVIDERS: Urology; Visit Provider Internal Medicine
DX: I50.23 Acute on chronic systolic (congestive) heart failure (principal); I11.9 Hypertensive heart disease without heart failure; R06.00 Dyspnea, unspecified
CPT/HCPCS: 36415; 80048; 83880

== ENCOUNTER → 2018-11-03 11:27 | Outpatient (CLI) | payer MEDICARE, OTHER, SELFPAY ==
[2018-11-03 13:15] LABS: Anion Gap 16.8 mEq/L (5-15); Blood Urea Nitrogen 44 mg/dL (7-18); Calcium 8.8 mg/dL (8.5-10.1); Carbon Dioxide 25 mmol/L (21.0-32.0); Chloride 108 mmol/L (98-107); Creatinine,Serum 2.07 mg/dL (0.55-1.02); Estimated Glomerular Filt Rate 23 ml/min (>60); GFR (African American) 28 ML/MIN (>60); Glucose 122 mg/dL (74-106); Potassium 4.8 mmoL/L (3.5-5.1); Sodium 145 mmol/L (136-145)
== END ==
PROVIDERS: Visit Provider Internal Medicine
DX: I12.9 Hypertensive chronic kidney disease with stage 1 through stage 4 chronic kidney disease, or unspecified chronic kidney disease (principal); N18.3 Chronic kidney disease, stage 3 (moderate); N11.9 Chronic tubulo-interstitial nephritis, unspecified
CPT/HCPCS: 36415; 80048

== ENCOUNTER → 2019-04-13 09:21 | Outpatient (CLI) | payer MEDICARE, OTHER, SELFPAY ==
--- NOTE | 2019-04-13 09:26 | CA_ITS ---
APPROVED REPORT EXAM: Comprehensive 2D, Doppler, and color-flow Echocardiogram Work Manager: Rachael Zamarripa CRT Ht: 5 ft 3 in Wt: 170lbs BSA: 1.80 BP: 117/55 mmHg Indications: valvular disease, home o2, renal stent, copd, ablation, pacer 2D Dimensions LVOT 1.68 cm (M/F) 1.5-2.5 M-Mode Dimensions RVDd 3.07 cm (0.9-2.6) LVDd 5.04 cm (3.5-5.7) IVSd 1.49 cm (0.6-1.1) PWd 0.73 cm (0.6-1.1) EDV (Teich) 120.50 mL LV Diastology E/A Ratio 1.88 Mitral Valve MV A Velocity 32.00 (40-130 cm/s) Left Ventricle Left atrium is moderately enlarged, left ventricle is normal size, mild concentric left ventricular hypertrophy, visually estimated ejection fraction 55% with no regional wall motion abnormality. Diastolic parameters are inconclusive. Right Ventricle Right atrium and right ventricle are mildly enlarged with normal contractility, there is a pacemaker lead seen in the right atrium and right ventricle. Aortic Valve Aortic valve is thickened and calcified leaflet continue to display good mobility, there is no aortic stenosis, there is mild aortic insufficiency. Mitral Valve Mitral valve has mitral calcification, leaflets are minimally thickened, there is no mitral stenosis, there is mild mitral regurgitation. Tricuspid Valve Tricuspid valve is grossly normal, there is no tricuspid stenosis, there is mild tricuspid regurgitation, tricuspid regurgitation jet velocity is inadequate for calculation of the right ventricular systolic pressure. Pulmonic Valve Pulmonic valve is poorly visualized. Great Vessels Aortic root is normal size. Pericardium No significant pericardial effusion noted. Conclusion 1. Biatrial enlargement, normal left ventricular size, mild concentric left ventricular hypertrophy, visually estimated ejection fraction 55% with no regional wall motion abnormality, endocardial surfaces are poorly visualized. Diastolic parameters are inconclusive. 2. Mildly enlarged right ventricle with normal contractility. 3. Thickened and calcified aortic valve without Doppler evidence of aortic stenosis, there is mild aortic insufficiency. 4. Mild mitral and tricuspid regurgitation. 5. No significant pericardial effusion noted. Electronically signed by : Curt Kothari, 04/14/2019 05:57:53
== END ==
PROVIDERS: PCP Internal Medicine Adolescent Medicine; Visit Provider Urology
DX: I27.20 Pulmonary hypertension, unspecified (principal); I34.0 Nonrheumatic mitral (valve) insufficiency; I35.1 Nonrheumatic aortic (valve) insufficiency; I38 Endocarditis, valve unspecified; R50.9 Fever, unspecified
CPT/HCPCS: 93306

== ENCOUNTER → 2019-05-06 11:48 | Outpatient (CLI) | payer MEDICARE, OTHER, SELFPAY ==
--- NOTE | 2019-05-06 11:54 | XR_ITS ---
PROCEDURE: XR MULTIPLE SPINE 6+V CLINICAL INDICATION: LOW BACK PAIN COMPARISON: CXR2V XR chest 2V from 03/21/2018 FINDINGS: AP and lateral views of the thoracic spine show mild multilevel thoracic spondylosis with degenerative disc disease and endplate osteophytes. No acute fracture or dislocation. No lytic or blastic change. There is mild kyphosis. AP lateral and oblique views of the lumbar spine demonstrates mild lumbar scoliosis convex right. Multilevel degenerative disc disease is present. There is 4 mm anterolisthesis of L4 on L5. Facet arthritic changes are present at L4-L5 and S1. There is generalized vascular calcification. IMPRESSION: 1. No acute fracture. 2. Thoracic and lumbar spondylosis as described above Dictated by: Allan Nixon MD 05/06/2019 21:32 Electronically signed by Allan Nixon MD in [place] 05/06/2019 21:32
== END ==
PROVIDERS: PCP Nurse Practitioner Family; Visit Provider Nurse Practitioner Family
DX: M54.5 Low back pain (principal)
CPT/HCPCS: 72084

== ENCOUNTER → 2019-05-08 09:55 | Outpatient (CLI) | payer MEDICARE, OTHER, SELFPAY ==
[2019-05-08 11:22] LABS: Anion Gap 16.5 mEq/L (5-15); Blood Urea Nitrogen 58 mg/dL (7-18); Calcium 8.5 mg/dL (8.5-10.1); Carbon Dioxide 25 mmol/L (21.0-32.0); Chloride 106 mmol/L (98-107); Creatinine,Serum 2.02 mg/dL (0.55-1.02); Estimated Glomerular Filt Rate 24 ml/min (>60); GFR (African American) 29 ML/MIN (>60); Glucose 130 mg/dL (74-106); Potassium 5.5 mmoL/L (3.5-5.1); Sodium 142 mmol/L (136-145)
== END ==
PROVIDERS: Visit Provider Internal Medicine Cardiovascular Disease
DX: I50.9 Heart failure, unspecified (principal)
CPT/HCPCS: 36415; 80048

== ENCOUNTER → 2019-05-11 08:58 | Outpatient (CLI) | payer MEDICARE, OTHER, SELFPAY ==
[2019-05-11 11:19] LABS: Anion Gap 15.8 mEq/L (5-15); Blood Urea Nitrogen 40 mg/dL (7-18); Calcium 8.4 mg/dL (8.5-10.1); Carbon Dioxide 24 mmol/L (21.0-32.0); Chloride 108 mmol/L (98-107); Creatinine,Serum 1.87 mg/dL (0.55-1.02); Estimated Glomerular Filt Rate 26 ml/min (>60); GFR (African American) 31 ML/MIN (>60); Glucose 153 mg/dL (74-106); Potassium 4.8 mmoL/L (3.5-5.1); Sodium 143 mmol/L (136-145)
== END ==
PROVIDERS: Visit Provider Internal Medicine Cardiovascular Disease
DX: I11.9 Hypertensive heart disease without heart failure (principal); I35.1 Nonrheumatic aortic (valve) insufficiency; I48.91 Unspecified atrial fibrillation; R06.00 Dyspnea, unspecified
CPT/HCPCS: 36415; 80048

== ENCOUNTER 2019-10-05 13:01 | Observation (INO) | payer MEDICARE, SELFPAY ==
[2019-10-05] VITALS (7 sets, daily range): BP systolic 102–104; BP diastolic 52–56; PULSE 70–74; RESP 17–20; TEMP 36.8–36.9; O2SAT 95–96; BMI 34.3
--- NOTE | 2019-10-05 12:36 | XR_ITS ---
PROCEDURE: XR CHEST 2V CLINICAL HISTORY: short of breath COPD, shortness of breath, heart disease COMPARISON: CXR2V XR chest 2V from 03/01/2018 CXR1VP XR chest portable from 03/15/2018 CXR2V XR chest 2V from 03/17/2018 CXR2V XR chest 2V from 03/21/2018 FINDINGS: Biventricular pacemaker is present from left subclavian approach. There is normal heart size. Changes of COPD. No lobar consolidation or collapse. There is mild loss of height anteriorly involving T12 not significantly changed. There are degenerative changes in the thoracic spine. No acute bony abnormalities. IMPRESSION: COPD. No change with no acute finding Dictated by: Allan Nixon MD 10/05/2019 15:46 Electronically signed by Allan Nixon MD in [place] 10/05/2019 15:46
[2019-10-05 14:00] LABS: Alanine Aminotransferase 19 U/L (12-78); Albumin/Globulin Ratio 1.5 (1.1-1.8); Alkaline Phosphatase 120 U/L (38-126); Anion Gap 18.5 mEq/L (5-15); Aspartate Amino Transferase 29 U/L (14-36); Bilirubin,Total 0.8 mg/dl (0.2-1.3); Blood Urea Nitrogen 34 mg/dl (7-17); Calcium 9.7 mg/dl (8.4-10.2); Carbon Dioxide 23 mmol/L (22.0-30.0); Chloride 100 mmol/L (98-107); Creatinine Clearance Estimated 29 mL/min (50-200); Estimated Glomerular Filt Rate 23 ml/min (>60); GFR (African American) 27 ML/MIN (>60); Globulin 3.4 g/dL (1.3-3.2); Glucose 130 mg/dl (74-100); Potassium 4.5 mmoL/L (3.5-5.1); Sodium 137 mmol/L (136-145); Total Protein,Serum 8.4 g/dl (6.3-8.2)
[2019-10-05 14:08] LABS: Basophils # 0.1 K/mm3 (0-0.2); Basophils % 0.5 % (0.1-2.0); Eosinophils # 0.2 K/mm3 (0.0-0.4); Eosinophils % 1.3 % (0.1-12.0); Hematocrit 40.6 % (37.0-47.0); Hemoglobin 12.8 g/dL (12.2-16.2); Lymphocytes # 1.3 K/mm3 (0.7-4.5); Lymphocytes % 10.8 % (10-50); Mean Corpuscular HGB Conc 31.5 g/dL (31.8-35.4); Mean Corpuscular Hemoglobin 31.2 pg (27.0-31.2); Mean Corpuscular Volume 99.2 fl (81-99); Mean Platelet Volume 8.3 fl (7.4-10.4); Monocytes # 0.4 K/mm3 (0.1-1.0); Monocytes % 3.3 % (1.7-9.3); Neutrophils % 84.1 % (37.0-80.0); Platelet Count 259 K/mm3 (142-424); Red Cell Distribution Width 14.1 % (11.5-17.5); White Blood Count 11.9 K/mm3 (4.8-10.8)
[2019-10-05 14:09] LABS: NT Pro Brain Natriuretic Pep. 2400 pg/mL (0-450)
[2019-10-05 14:13] LABS: Troponin I < 0.01 ng/ml (0.00-0.034)
--- NOTE | 2019-10-05 14:14 | HMH.PHAVTE ---
[facility] Pharmacy VTE Monitoring - Patient Demographics Admission date: 10/05/19 Report Date: 10/05/19 Time: 14:14 Allergies/Adverse Reactions: Patient Allergies alendronate sodium [From Fosamax] Allergy (Mild, Verified 05/08/19 09:04) DIZZINESS naproxen Allergy (Mild, Verified 05/08/19 09:04) SEDATION Sulfa (Sulfonamide Antibiotics) Allergy (Mild, Verified 05/08/19 09:04) NA-NAUSEA hydrocodone [From LORTAB] Allergy (Unknown, Verified 05/08/19 09:04) Height: 1.6 m Weight: 88.025 kg - VTE Risk Labs: VTE Related Lab Results Hgb 12.8 g/dL (12.2-16.2) 10/05/19 13:35 Hct 40.6 % (37.0-47.0) 10/05/19 13:35 Plt Count 259 K/mm3 (142-424) 10/05/19 13:35 BUN 34 mg/dl (7-17) H 10/05/19 13:35 Creatinine 2.10 mg/dl (0.52-1.04) H 10/05/19 13:35 Estimated Creat Clear 29 mL/min (50-200) 10/05/19 13:35 Was VTE Risk Assessment Performed: Yes VTE Score: 5 VTE Risk Level: Low Risk Clinical Trial Participant: No - Prophylaxis VTE Prophylaxis Ordered?: Yes Types of VTE Prophylaxis: TEDS Knee High Location of Applied Device: Bilateral Lower Extremeties
--- NOTE | 2019-10-05 14:31 | HMH.PHAINT ---
HOME MEDICATION RECONCILIATION COMPLETED USING LIST FROM DR CERVANTES'S OFFICE AND USING PT INTERVIEW.
--- NOTE | 2019-10-05 15:07 | HMH.HP ---
*Admission Date: 10/05/19 *Chief complaint: SOA, dyspnea with exertion *History of present illness: Ms. Chu is an 84yo F with multiple co-morbidities including O2 Dependent COPD, CHF, CKD who presented to clinic in [place] with complaint of 4 days of worsening shortness of breath and dyspnea with exertion. Symptoms began last Saturday with onset of a sore throat and shortness of breath. Have progressed over the weekend with development of pain in her back and abdomen due to increased work of breathing. Has tried salt water gargles at home which have helped somewhat with her sore throat. Denies fever, increase in cough, increase in sputum production. Has had some mild headache though this is been present for months per her report. - CP yesterday, hurt from here down as she points to chest, but also had pain in back from shoulders to waist. - increased O2 to 2.5L from 2L baseline. - No meds to treat Sx other than Tylenol, no benefit - using Nebs q4hrs, using symbicort BID with no significant change in symptoms - no sick contacts, no travel, but has been out of house with son over the past few weeks - family shops for her. Cardiac history as follows: Echocardiogram performed April 2019 1. Biatrial enlargement, normal left ventricular size, mild concentric left ventricular hypertrophy, visually estimated ejection fraction 55% with no regional wall motion abnormality, endocardial surfaces are poorly visualized. Diastolic parameters are inconclusive. 2. Mildly enlarged right ventricle with normal contractility. 3. Thickened and calcified aortic valve without Doppler evidence of aortic stenosis, there is mild aortic insufficiency. 4. Mild mitral and tricuspid regurgitation. 5. No significant pericardial effusion noted. BIV in place since 2017 s/p atrial appendage ligation NYHA class III with dyspnea on exertion/ADLs, continuous O2, treated with Entresto CKD 4 with creatinine baseline approximately 2.0 for more than 3 years [facility] History I have reviewed the patient's past medical history: Yes Medical History: Reports:: Atrial Fibrillation, Cardiomyopathy, Chronic Obstructive Pulmonary Disease (COPD), Diabetes Mellitus Type 2, Home Oxygen, Hyperlipidemia, Hypertension, Internal Pacemaker, Pulmonary Embolism Denies:: Cancer, Diabetes Mellitus Type 1, MRSA, Seizures *Have you ever received a pneumonia vaccine?: Yes *Have you received a flu vaccine this season?: Yes Other Medical History: Reports: Anemia, Cataracts Other Surgeries: Yes: Cholecystectomy, Hysterectomy-Total, Pacemaker, Other (C) Amputation: No Fractures: No - *Social History Educational Level: Attended Grade School Smoking Status: Former smoker Tobacco Type: cigarettes # Packs/Day (cigarettes): 1 Smoking End Date: 8 years ago Alcohol Intake: never Alcohol Intake Frequency:: 3 or more drinks per day Substance Use Type: denies use *Occupational Status:: retired Housing: house Household Members: none *Travel in the last 8 weeks: None Family Hx:: Cancer, Diabetes, Heart Attack Review of Systems - Review of Systems Review of systems:: pertinent systems reviewed and negative unless documented below (14 point review of systems performed, pertinent positives and negatives as per HPI) Meds Home Medications Medication Instructions Recorded Confirmed Type aspirin 81 mg tablet,delayed 81 mg PO DAILY 06/24/17 10/05/19 History release budesonide-formoterol HFA 160 2 puff INHALATION Q12H 08/20/17 10/05/19 History mcg-4.5 mcg/actuation aerosol inhaler diltiazem HCl 60 mg 60 mg PO BID 08/20/17 10/05/19 History capsule,extended release 12 hr omeprazole 20 mg capsule,delayed 20 mg PO DAILY cap 08/20/17 10/05/19 History release diazePAM [Valium] 2 mg PO BIDP PRN 12/15/17 10/05/19 History furosemide 20 mg tablet 20 mg PO DAILY tab 09/08/18 10/05/19 History Albuterol Sulfate [Albuterol 2.5 mg IH Q4H 10/05/19 10/05/19 History 0.083% 2.5mg/3mL neb]
[2019-10-05 17:16] LABS: Troponin I < 0.01 ng/ml (0.00-0.034)
--- NOTE | 2019-10-05 17:51 | ECG_ITS ---
APPROVED REPORT Exam: Resting ECG HR:70 bpm ECG Measurements Heart Rate 70 AXES QRSd 142 QRS 152 QT 484 T 1 QTc 522 <Conclusion> Pacemaker rhythm Electronically signed by : Roman Alegria, 10/06/2019 08:56:41
--- NOTE | 2019-10-05 18:01 | PC.NURSE ---
katy tis doing well. shortness of breath noted with exertion, crackles in bases requested breathing treatment which was reordered by md. instructed to ring out when ambulating to bathroom. educated on measuring output is steady on feet with use of walker. 2l oxygen. vitals stable will continue to monitor.
--- NOTE | 2019-10-05 19:16 | PC.NURSE ---
report given to bernardo
[2019-10-05 19:17] LABS: Troponin I < 0.01 ng/ml (0.00-0.034)
[2019-10-06] VITALS (21 sets, daily range): BP systolic 100–138; BP diastolic 46–68; PULSE 65–80; RESP 18–20; TEMP 36.4–36.9; O2SAT 91–98; BMI 34.9
--- NOTE | 2019-10-06 03:09 | PC.NURSE ---
A&O X4. PT RESTED WELL WITH EYES CLOSED T/O THIS SHIFT. DENIES SOA. DENIES PAIN. 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 BILATERAL LUNG SOUNDS NOTED WITH FINE CRACKLES UPON AUSCULTATION. TOLERATED 2LNC WELL WITH NO COMPLAINTS. STANDBY ASSIST WITH AMB TO AND FROM BATHROOM. URINE OUTPUT NOTED THUS FAR AT 300 ML. URINE NOTED CLEAR AND BRIGHT YELLOW IN COLOR. REFUSED TEDS. VSS. REMAINS SAFE. CALL LIGHT WITHIN REACH. WILL CONTINUE TO MONITOR.
--- NOTE | 2019-10-06 06:09 | PC.NURSE ---
JACLYN COLIN NOTIFIED OF CONSULT.
[2019-10-06 06:19] LABS: Chloride 102 mmol/L (98-107)
[2019-10-06 06:20] LABS: Potassium 3.9 mmoL/L (3.5-5.1); Sodium 139 mmol/L (136-145)
[2019-10-06 06:23] LABS: Anion Gap 14.9 mEq/L (5-15); Blood Urea Nitrogen 38 mg/dl (7-17); Carbon Dioxide 26 mmol/L (22.0-30.0); Creatinine Clearance Estimated 29 mL/min (50-200); Estimated Glomerular Filt Rate 23 ml/min (>60); GFR (African American) 27 ML/MIN (>60); Glucose 116 mg/dl (74-100)
[2019-10-06 08:35] LABS: Calcium 8.7 mg/dl (8.4-10.2)
--- NOTE | 2019-10-06 10:06 | HMH.CNCARD ---
History of Present Illness Consult date: 10/06/19 Requesting physician: Román Multani Consult reason: congestive heart failure Chief complaint: SOA Additional Medical History:: 1. Atrial fibrillation A. Chronic in nature with patient on Eliquis therapy for anticoagulation along with combination of calcium channel darnell and beta darnell for rate control. B. Permanent pacemaker placement for sick sinus syndrome, 2014 with upgrade to [employer] biventricular pacemaker, 2016 C. Left atrial appendage ligation, Dr. Dave Cassidy, 2016 with discontinuation of anticoagulation thereafter 2. Hypertension 3. Hyperlipidemia 4. Chronic obstructive pulmonary disease/asthma, oxygen requiring 5. Obesity 6. Diabetes 7. CKD stage 3 8. Chronic anemia with hemoglobin in the 9-11 range 9. Nonischemic cardiomyopathy A. History of cardiac catheterization, 2011 and 2014, normal coronary arteries. B. Echocardiogram 02/2016, ejection fraction estimated at 45-55% percent. C. Repeat echocardiogram, 03/2016, possible Takotsubo cardiomyopathy with ejection fraction estimated at 25-35% with biventricular dilatation and mild to moderate biatrial dilatation with moderate mitral regurgitation. Question LEFT ventricular thrombus noted. D. Echo, 2016, ejection fraction 45% with mild to moderate MR E. Echo, 2018, ejection fraction 55%, moderate LAE, mild concentric LVH, moderate RV enlargement, moderate AR, MR and mild TR with RVSP of 40 mmHg F. Echo, 04/2019, biatrial enlargement, normal LV size with mild concentric LVH and LVEF of 55%. Mildly enlarged right ventricle. Thickened and calcified aortic valve without evidence of aortic stenosis. Mild aortic insufficiency, mild TR and MR noted. 10. History of postop DVT and PE, 1979. 11. Fibromuscular dysplasia of the RIGHT renal artery, 07/2014, angioplasty and stenting with bare metal stent on 08/03/2014 12. History of severe mitral regurgitation, 2016, resolved after biventricular pacemaker upgrade. 13. Chronic combined systolic and diastolic congestive heart failure, stage II-III 14. Intolerant of Coreg and bisoprolol due to limiting fatigue History of present illness: Ms. Chu is an 84yo F with multiple co-morbidities including O2 Dependent COPD, CHF, CKD who presented to clinic in [place] with complaint of 4 days of worsening shortness of breath and dyspnea with exertion. Symptoms began last Saturday with onset of a sore throat and shortness of breath. Have progressed over the weekend with development of pain in her back and abdomen due to increased work of breathing. Has tried salt water gargles at home which have helped somewhat with her sore throat. Denies fever, increase in cough, increase in sputum production. Has had some mild headache though this is been present for months per her report. - CP yesterday, hurt from here down as she points to chest, but also had pain in back from shoulders to waist. - increased O2 to 2.5L from 2L baseline. - No meds to treat Sx other than Tylenol, no benefit - using Nebs q4hrs, using symbicort BID with no significant change in symptoms - no sick contacts, no travel, but has been out of house with son over the past few weeks - family shops for her The above per Dr. Multani. Patient confirms the account as noted above. She denies chest pain, pressure or tightness. She denies any increase in fluid intake. Patient has chronic shortness of breath but this is more intense and requires less effort to cause her to be short of breath currently. Patient diuresed less than a liter overnight but states that her shortness of breath has improved slightly. She still does not feel that she is ready to go home at this time. In reviewing her history from our notes in the office, patient has had a cardiomyopathy that resolved on medical therapy in the past. She does have chronic shortness of breath complaints that persist. [facility] History Medical History: Reports:: Atrial Fibrill
--- NOTE | 2019-10-06 10:47 | CA_ITS ---
APPROVED REPORT EXAM: Comprehensive 2D, Doppler, and color-flow Echocardiogram Vendor Analyst: Rachael Zamarripa CRT Ht: 5 ft 3 in Wt: 197lbs BSA: 1.92 BP: 113/57 mmHg Indications: COPD, ex smoker,HTN, DM, SOB, Obesity, CM, AFIB, Pacer, Pacemaker, O2 dependent 2D Dimensions LVOT 1.82 cm (M/F) 1.5-2.5 M-Mode Dimensions RVDd 3.51 cm (0.9-2.6) LVDd 4.47 cm (3.5-5.7) LVDs 2.72 cm (3.5-5.7) IVSd 1.16 cm (0.6-1.1) PWd 0.89 cm (0.6-1.1) EF (Teich) 69.80% FS 39.10% EDV (Teich) 91.00 mL ESV (Teich) 27.50 mL LV Diastology E/A Ratio 3.76 Mitral Valve MV A Velocity 21.00 (40-130 cm/s) Left Ventricle Left atrium is moderately enlarged, left ventricle is normal size, mild concentric left ventricular hypertrophy, visually estimated ejection fraction 55% with no regional wall motion abnormality, diastolic parameters are inconclusive. Right Ventricle Right atrium is moderately enlarged, right ventricle is mildly dilated with normal contractility. Aortic Valve Aortic valve is thickened and calcified, there is no aortic stenosis, there is mild aortic insufficiency. Mitral Valve Mitral valve leaflets are minimally thickened, there is mild mitral regurgitation. Tricuspid Valve Tricuspid valve is grossly normal, there is mild tricuspid regurgitation, tricuspid regurgitation jet velocity is inadequate for calculation of the right ventricular systolic pressure. Pulmonic Valve Pulmonic valve is poorly visualized. Great Vessels Aortic root is normal size. Pericardium No significant pericardial effusion noted. Conclusion 1. Moderate biatrial alignment, normal left ventricular size, mild concentric left ventricular hypertrophy, visually estimated ejection fraction 55% with no regional wall motion abnormality, diastolic parameters are inconclusive. 2. Mildly enlarged right ventricle with normal contractility, there is pacemaker lead seen in the right ventricle. 3. Mild aortic, mitral and tricuspid regurgitation. 4. No significant pericardial effusion noted. Electronically signed by : Curt Kothari, 10/06/2019 19:45:01
--- NOTE | 2019-10-06 11:56 | HMH.PTEV ---
Physical Therapy Evaluation Rehab PT IP Evaluation Start: 10/06/19 08:52 Freq: ONCE Status: Active Protocol: Document 10/06/19 11:52 KINGS (Rec: 10/06/19 11:56 [email or web address] [id number]) Subjective/History History History Ms. Chu is an 84yo F with multiple co-morbidities including O2 Dependent COPD, CHF, CKD who presented to clinic in [place] with complaint of 4 days of worsening shortness of breath and dyspnea with exertion. Symptoms began last Saturday with onset of a sore throat and shortness of breath. Have progressed over the weekend with development of pain in her back and abdomen due to increased work of breathing. Has tried salt water gargles at home which have helped somewhat with her sore throat. Denies fever, increase in cough, increase in sputum production. Has had some mild headache though this is been present for months per her report. Subjective Subjective Pt reports she wishes to return home but not today - hopefully tomorrow Rehab PT IP Eval Objective Appearance Patient Behavior Appropriate,Cooperative Patient Orientation Person,Place,Time Difficulty following instructions none Speech Pattern Clear Ambulation Patient Able to Ambulate Yes Ambulation Observation IP General Gait Pattern Observation Shuffling Step Ambulation Distance (feet) 50 Ambulation Assistive Device Rolling Walker Ambulation Ability Supervision/Stand by Balance Ability to Arise Able, uses arms to help Sitting Balance Steady, safe Standing Balance Steady, wide stance Dynamic Sitting Balance Ability Good Dynamic Standing Balance Ability Fair Transfers Chair Transfer Ability Supervision/Stand by Sit to Stand Bed Transfer Ability Supervision/Stand by Sit to Stand Chair Transfer Ability Supervision/Stand by ROM All Extremities PT ROM Status WFL MMT All Extremities PT MMT WFL Rehab PT IP prob,goals,plan Problems Date of Evaluation: 10/06/19 PT IP Problems
--- NOTE | 2019-10-06 14:25 | PC.NURSE ---
PT IS SITTING UP ON THE SOB. RECEIVED SOME TYLENOL FOR MILD BACK DISCOMFORT. ALERT AND ORIENTED X4. VSS. PT HAS ONLY DIURESED 400 ML'S SINCE DOSE OF BUMEX THIS AM. EATING AND DRINKING WELL. LUNG SOUNDS DIMINISHED. BOWEL SOUNDS NORMAL. NO SWELLING NOTED TO BLE. O2 SATURATION IN THE 90'S ON 2 L NC. PT AMBULATES TO THE BATHROOM WITH 1 ASSIST. WILL CONTINUE TO MONITOR.
--- NOTE | 2019-10-06 16:46 | HMH.ACPN2 ---
Internal Medicine - PN: Subj *Date: 10/06/19 *Time: 08:30 Interval history: Patient did well overnight. Subjective improvement in breathing this morning. Stable on 2 L nasal cannula oxygen with sats in the mid 90s. Had approximately 650 cc of urine output after 2 mg of Bumex. Denies nausea, vomiting, chest pain, syncope. Still complains of shortness of breath states is a little bit better than yesterday. This is a longstanding complaint and with extensive prompting, she admits that its improving from yesterday and not too far from her baseline per her report. Cardiology to see patient today. Echocardiogram pending. PT consult placed. Exam Vital signs and Labs for Last 24 Hours: Temp Pulse Resp BP Pulse Ox 98.5 F 70 20 113/46 L 93 L 10/06/19 15:51 10/06/19 15:51 10/06/19 15:51 10/06/19 15:51 10/06/19 15:51 Laboratory Results - last 24 hr 10/05/19 15:59: Troponin I < 0.01 10/05/19 18:41: Troponin I < 0.01 10/06/19 05:44: Sodium 139, Potassium 3.9, Chloride 102, Carbon Dioxide 26, Anion Gap 14.9, BUN 38 H, Creatinine 2.10 H, Estimated Creat Clear 29, Estimated GFR 23 L, Est GFR ( Amer) 27 L, Glucose 116 H, Calcium 8.7 D I & O for Last 24 hours: Intake & Output 10/03/19 10/04/19 10/05/19 10/06/19 23:59 23:59 23:59 23:59 Intake Total 240 / 240 610 / 610 Output Total 100 / 400 700 / 700 Balance 140 / -160 -90 / -90 Weight 88.025 kg 89.499 kg Narrative: - Constitutional mild distress, obese, chronically ill appearing - *Routine HEENT Exam Head: Present: normocephalic Eye: Present: EOMI, PERRL ENT: Present: mucous membranes moist - *Routine Neck Exam Present: supple, no lymphadenopathy - *Routine Respiratory Exam Good air movement bilaterally, interval improvement and decrease in crackles in posterior lung tejada. Absent in right lung, present in lower portion of left lung. No wheeze or rhonchi - *Routine Cardiovascular Exam Present: RRR - *Routine Abdominal Exam Present: soft, normoactive bowel sounds. Absent: tenderness - *Routine Extremities Exam Present: edema (Trace). Absent: cyanosis, clubbing - *Routine Skin Exam Present: warm. Absent: rash - *Routine Neurological Exam Present: alert, oriented X3 Assessment and Plan (1) CHF exacerbation Current visit: Yes Status: Acute Category: Medical Code(s): I50.9 - Heart failure, unspecified (2) DM type 2 causing CKD stage 4 Current visit: Yes Status: Chronic Category: Medical Code(s): E11.22 - Type 2 diabetes mellitus with diabetic chronic kidney disease; N18.4 - Chronic kidney disease, stage 4 (severe) (3) Chronic respiratory failure Current visit: No Status: Chronic Category: Medical Code(s): J96.10 - Chronic respiratory failure, unspecified whether with hypoxia or hypercapnia (4) Diabetes type 2, controlled Current visit: No Status: Chronic Qualifiers: Diabetes mellitus termite treater helper insulin use: with retirement use Diabetes mellitus complication status: without complication Qualified Code(s): E11.9 - Type 2 diabetes mellitus without complications; Z79.4 - half-way (current) use of insulin Category: Medical Code(s): E11.9 - Type 2 diabetes mellitus without complications (5) Dyspnea on exertion Current visit: No Status: Acute Category: Medical Code(s): R06.09 - Other forms of dyspnea (6) Presence of biventricular cardiac pacemaker Current visit: No Status: Chronic Category: Medical Code(s): Z95.0 - Presence of cardiac pacemaker (7) Aortic regurgitation Current visit: No Status: Chronic Qualifiers: Cardiac valve disease etiology: etiology unspecified Qualified Code(s): I35.1 - Nonrheumatic aortic (valve) insufficiency Category: Medical Code(s): I35.1 - Nonrheumatic aortic (valve) insufficiency (8) Chronic obstructive lung disease Current visit: No Status: Chronic Qualifiers: COPD type: unspecified COPD Qualified C
--- NOTE | 2019-10-06 16:52 | HMH.DCSUM ---
General - General Admission date:: 10/05/19 Discharge date: 10/07/19 HPI HPI: Ms. Chu is an 84yo F with multiple co-morbidities including O2 Dependent COPD, CHF, CKD who presented to clinic in [place] with complaint of 4 days of worsening shortness of breath and dyspnea with exertion. Symptoms began last Saturday with onset of a sore throat and shortness of breath. Have progressed over the weekend with development of pain in her back and abdomen due to increased work of breathing. Has tried salt water gargles at home which have helped somewhat with her sore throat. Denies fever, increase in cough, increase in sputum production. Has had some mild headache though this is been present for months per her report. - CP yesterday, hurt from here down as she points to chest, but also had pain in back from shoulders to waist. - increased O2 to 2.5L from 2L baseline. - No meds to treat Sx other than Tylenol, no benefit - using Nebs q4hrs, using symbicort BID with no significant change in symptoms - no sick contacts, no travel, but has been out of house with son over the past few weeks - family shops for her. Cardiac history as follows: Echocardiogram performed April 2019 1. Biatrial enlargement, normal left ventricular size, mild concentric left ventricular hypertrophy, visually estimated ejection fraction 55% with no regional wall motion abnormality, endocardial surfaces are poorly visualized. Diastolic parameters are inconclusive. 2. Mildly enlarged right ventricle with normal contractility. 3. Thickened and calcified aortic valve without Doppler evidence of aortic stenosis, there is mild aortic insufficiency. 4. Mild mitral and tricuspid regurgitation. 5. No significant pericardial effusion noted. BIV in place since 2017 s/p atrial appendage ligation NYHA class III with dyspnea on exertion/ADLs, continuous O2, treated with Entresto CKD 4 with creatinine baseline approximately 2.0 for more than 3 years Hospital Course Hospital Course: Patient admitted for diuresis and optimization of CHF/treatment of CHF exacerbation. Had suboptimal response to diuresis but was fluid negative over the course of admission. Clinical improvement in her breathing as well as objective improvement in exam with decreased crackles. Repeat echo performed, cardiology consulted. Appreciate the recommendations during admission. Continue current regimen with Entresto and diltiazem. Echocardiogram essentially at baseline with no change since last year. We will continue fluid management in the outpatient setting. Needs close follow-up to reassess kidney function due to slight bump in creatinine prior to discharge secondary to diuresis. Denies shortness of breath beyond baseline. States she feels much better. No chest pain, confusion, syncope, edema. Stable for discharge home. Only medication changes transitioning from Lasix to Bumex. Will stop Lasix in the outpatient setting. Initiate Bumex 0.5 mg daily. Objective Vital signs: Temp Pulse Resp BP Pulse Ox 98.5 F 70 20 113/46 L 93 L 10/06/19 15:51 10/06/19 15:51 10/06/19 15:51 10/06/19 15:51 10/06/19 15:51 Narrative: - Constitutional mild distress, obese, chronically ill appearing - *Routine HEENT Exam Head: Present: normocephalic Eye: Present: EOMI, PERRL ENT: Present: mucous membranes moist - *Routine Neck Exam Present: supple, no lymphadenopathy - *Routine Respiratory Exam Good air movement bilaterally, interval improvement and decrease in crackles in posterior lung tejada. Absent in right lung, present in lower portion of left lung. No wheeze or rhonchi - *Routine Cardiovascular Exam Present: RRR - *Routine Abdominal Exam Present: soft, normoactive bowel sounds. Absent: tenderness - *Routine Extremities Exam Present: edema (Trace). Absent: cyanosis, clubbing - *Routine Skin Exam Present: warm. Absent: rash - *Routine Neurological Exam Pres
[2019-10-07] VITALS: PULSE 70
[2019-10-07 04:00] VITALS: BP 127/53; PULSE 70; RESP 18; TEMP 36.5; O2SAT 98
[2019-10-07 05:06] VITALS: PULSE 70; PULSE 72; O2SAT 95
--- NOTE | 2019-10-07 05:30 | PC.NURSE ---
Pt reports being restless since 0300. No complaints reported and has ambulated independently w/ walker to BR. Voided 500ml of clear, yellow urine this shift. Paced on tele monitor. Pt does have SOA on exertion when going to BR and requested a breathing tx early this am.
[2019-10-07 05:33] VITALS: BMI 34.9
[2019-10-07 06:27] LABS: Blood Urea Nitrogen 49 mg/dl (7-17); Calcium 8.7 mg/dl (8.4-10.2); Carbon Dioxide 26 mmol/L (22.0-30.0); Chloride 103 mmol/L (98-107); Creatinine Clearance Estimated 26 mL/min (50-200); Estimated Glomerular Filt Rate 19 ml/min (>60); GFR (African American) 23 ML/MIN (>60); Glucose 155 mg/dl (74-100); Sodium 136 mmol/L (136-145)
[2019-10-07 06:29] LABS: Basophils # 0.1 K/mm3 (0-0.2); Basophils % 0.7 % (0.1-2.0); Eosinophils # 0.2 K/mm3 (0.0-0.4); Eosinophils % 3.1 % (0.1-12.0); Hematocrit 34.4 % (37.0-47.0); Hemoglobin 10.9 g/dL (12.2-16.2); Lymphocytes # 1.5 K/mm3 (0.7-4.5); Lymphocytes % 18.8 % (10-50); Mean Corpuscular HGB Conc 31.6 g/dL (31.8-35.4); Mean Corpuscular Hemoglobin 31.5 pg (27.0-31.2); Mean Corpuscular Volume 99.4 fl (81-99); Mean Platelet Volume 8.7 fl (7.4-10.4); Monocytes # 0.4 K/mm3 (0.1-1.0); Monocytes % 4.9 % (1.7-9.3); Neutrophils # 5.6 K/mm3 (1.8-7.8); Neutrophils % 72.5 % (37.0-80.0); Platelet Count 201 K/mm3 (142-424); Red Blood Count 3.46 M/mm3 (4.20-5.40); White Blood Count 7.7 K/mm3 (4.8-10.8)
[2019-10-07 08:00] VITALS: BP 116/69; PULSE 70; RESP 16; TEMP 36.4; O2SAT 97
[2019-10-07 10:11] VITALS: PULSE 70; PULSE 72
--- NOTE | 2019-10-07 10:45 | HMH.PNCARD ---
Subjective Date: 10/07/19 Time: 10:40 Principal diagnosis: chf Interval history: This is an 84-year-old white female who was admitted to the hospital with an exacerbation of CHF. She had worsening shortness of breath that began last Saturday continued to worsen. But she also complained of a sore throat. She denies any chest pain or pressure. She has been diuresed with IV Bumex. She states that she is feeling much better now. Her shortness of breath is improved. She states that she still has a little shortness of breath with exertion but this is much better. Her edema has also improved. She denies any fever, chills, nausea, vomiting, diarrhea, PND or orthopnea. Exam Vital signs and Labs for Last 24 Hours: Temp Pulse Resp BP Pulse Ox 97.5 F L 72 16 116/69 97 10/07/19 08:00 10/07/19 10:11 10/07/19 08:00 10/07/19 08:00 10/07/19 08:00 Laboratory Results - last 24 hr 10/07/19 05:55: WBC 7.7 D, RBC 3.46 L, Hgb 10.9 L, Hct 34.4 L, MCV 99.4 H, MCH 31.5 H, MCHC 31.6 L, RDW 14.0, Plt Count 201, MPV 8.7, Neut % (Auto) 72.5, Lymph % (Auto) 18.8, [place] % (Auto) 4.9, Eos % (Auto) 3.1, Baso % (Auto) 0.7, Neut # (Auto) 5.6, Lymph # (Auto) 1.5, [place] # (Auto) 0.4, Eos # (Auto) 0.2, Baso # (Auto) 0.1 10/07/19 05:55: Sodium 136, Potassium 4.0, Chloride 103, Carbon Dioxide 26, Anion Gap 11.0, BUN 49 H D, Creatinine 2.40 H, Estimated Creat Clear 26, Estimated GFR 19 L*, Est GFR ( Amer) 23 L, Glucose 155 H, Calcium 8.7, Magnesium 2.0 I & O for Last 24 hours: Intake & Output 10/04/19 10/05/19 10/06/19 10/07/19 23:59 23:59 23:59 23:59 Intake Total 240 / 240 610 / 610 360 / 360 Output Total 100 / 400 900 / 900 400 / 400 Balance 140 / -160 -290 / -290 -40 / -40 Weight 194 lb 1 oz 197 lb 5 oz 197 lb 9 oz Narrative: Echo shows: 1. Moderate biatrial alignment, normal left ventricular size, mild concentric left ventricular hypertrophy, visually estimated ejection fraction 55% with no regional wall motion abnormality, diastolic parameters are inconclusive. 2. Mildly enlarged right ventricle with normal contractility, there is pacemaker lead seen in the right ventricle. 3. Mild aortic, mitral and tricuspid regurgitation. 4. No significant pericardial effusion noted. - Constitutional no acute distress, obese - *Routine HEENT Exam Head: Present: normocephalic, atraumatic Eye: Present: EOMI, PERRL ENT: Present: mucous membranes moist - *Routine Neck Exam Present: supple, full ROM, normal carotid upstroke. Absent: JVD, carotid bruit, lymphadenopathy - *Routine Respiratory Exam Present: CTA bilaterally - *Routine Cardiovascular Exam Present: Normal S1, Normal S2, irregularly irregular. Absent: murmur - *Routine Abdominal Exam Present: soft, normoactive bowel sounds. Absent: tenderness, distended - *Routine Extremities Exam Present: full ROM, pulses intact, normal capillary refill. Absent: cyanosis, clubbing, edema - *Routine Skin Exam Present: intact, warm. Absent: erythema, rash - *Routine Neurological Exam Present: alert, oriented X3, CN II-XII intact. Absent: sensory deficit, motor deficit Progress Note: A&P (1) CHF exacerbation Status: Acute Current Visit: Yes (2) DM type 2 causing CKD stage 4 Status: Chronic Current Visit: Yes (3) Chronic respiratory failure Status: Chronic Current Visit: No (4) Diabetes type 2, controlled Status: Chronic Current Visit: No (5) Dyspnea on exertion Status: Acute Current Visit: No (6) Presence of biventricular cardiac pacemaker Status: Chronic Current Visit: No (7) Aortic regurgitation Status: Chronic Current Visit: No (8) Chronic obstructive lung disease Status: Chronic Current Visit: No (9) NYHA class 3 acute on chronic systolic heart failure Status: Chronic Current Visit: No (10) Pulmonary HTN Status: Chronic Current Visit: No Assessment and Plan for All Diagnoses:: Plan: 1. Stop
--- NOTE | 2019-10-07 12:10 | HMH.PHAINT ---
DISCHARGE COUNSELING COMPLETED ON PATIENT. ONLY NEW PRESCRIPTION IS BUMEX 0.5MG TO BE TAKEN DAILY. PATIENT IS TO STOP FUROSEMIDE AT HOME. CONTINUING ALL OTHER HOME MEDICATIONS. NEW PRESCRIPTION WAS SENT TO [facility]. PATIENT VERBALIZED UNDERSTANDING AND HAD NO QUESTIONS AT THIS TIME. -NATALIYA CRUZ, HERSOND
== END 2019-10-07 10:45 | disposition home or self-care (01) ==
PROVIDERS: Admitting Provider Internal Medicine Adolescent Medicine; PCP Internal Medicine Adolescent Medicine; Visit Provider Internal Medicine Adolescent Medicine
DX: I50.23 Acute on chronic systolic (congestive) heart failure (principal); I13.0 Hypertensive heart and chronic kidney disease with heart failure and stage 1 through stage 4 chronic kidney disease, or unspecified chronic kidney disease; N18.4 Chronic kidney disease, stage 4 (severe); E11.22 Type 2 diabetes mellitus with diabetic chronic kidney disease; I48.20 Chronic atrial fibrillation, unspecified; Z79.02 Long term (current) use of antithrombotics/antiplatelets; Z99.81 Dependence on supplemental oxygen; J96.10 Chronic respiratory failure, unspecified whether with hypoxia or hypercapnia; I35.1 Nonrheumatic aortic (valve) insufficiency; Z95.0 Presence of cardiac pacemaker; J44.9 Chronic obstructive pulmonary disease, unspecified
CPT/HCPCS: G0379; 36415; 71046; 80048; 80053; 83735; 83880; 84484; 85025; 93005; 93306; 94640; 94760; 94761; 97116; 97161; G0378

== ENCOUNTER → 2019-10-13 08:42 | Outpatient (CLI) | payer MEDICARE, SELFPAY ==
[2019-10-13 15:30] LABS: Anion Gap 13.6 mEq/L (5-15); Blood Urea Nitrogen 37 mg/dl (7-17); Calcium 9.6 mg/dl (8.4-10.2); Carbon Dioxide 24 mmol/L (22.0-30.0); Chloride 107 mmol/L (98-107); Estimated Glomerular Filt Rate 31 ml/min (>60); GFR (African American) 37 ML/MIN (>60); Glucose 137 mg/dl (74-100); Potassium 4.6 mmoL/L (3.5-5.1); Sodium 140 mmol/L (136-145)
== END ==
PROVIDERS: Visit Provider Internal Medicine Adolescent Medicine
DX: N18.9 Chronic kidney disease, unspecified (principal)
CPT/HCPCS: 36415; 80048

== ENCOUNTER 2019-12-06 18:03 | Emergency (ER) | payer MEDICARE, OTHER, SELFPAY ==
[2019-12-06 18:04] VITALS: BP 134/65; PULSE 70; RESP 18; TEMP 36.6; O2SAT 96; BMI 31.3; BMI 33.1
--- NOTE | 2019-12-06 18:23 | ECG_ITS ---
APPROVED REPORT Exam: Resting ECG HR:74 bpm ECG Measurements Heart Rate 74 AXES QRSd 116 QRS 118 QT 444 T -62 QTc 492 <Conclusion> Demand pacemaker, interpretation is based on intrinsic rhythm Accelerated Junctional rhythm with premature ventricular complexes or fusion complexes Right axis deviation Incomplete right bundle branch block Possible Right ventricular hypertrophy ST & T wave abnormality, consider inferior ischemia ST & T wave abnormality, consider anterolateral ischemia Prolonged QT Abnormal ECG Electronically signed by : Jamison Hodges, 12/07/2019 17:12:37
--- NOTE | 2019-12-06 18:24 | CT_ITS ---
PROCEDURE: CT ABDOMEN PELVIS WO CON CLINICAL INDICATION: nausea, vomiting COMPARISON: ABDPELW/O CT ABD PELVIS W/O CONTRAST from 09/17/2016 ABDPELW/O CT ABD PELVIS W/O CONTRAST from 09/23/2016 TECHNIQUE: Axial images obtained with sagittal and coronal reformats. All CT scans at the facility use one or more dose reduction, viz: automated exposure control, ma/kV adjustment per patient size (including targeted exams where dose is matched to indication, i.e. head), or iterative reconstruction technique. FINDINGS: LOWER THORAX: Atelectatic or fibrotic changes are present in the lung bases with a patchy area of atelectasis or infiltrate within the lingula. Biventricular pacemaker is present. ABDOMEN & PELVIS: Low-density changes along the inferior aspect of the right hepatic lobe measuring 2 cm not readily apparent on the previous study. The spleen, adrenal glands, have an unremarkable appearance. There is atrophy of the pancreas. There are post cholecystectomy changes with mild biliary ectasia in there is a duodenal diverticulum noted. No renal or ureteral calculi. No hydronephrosis. The appendix is not clearly delineated. Multiple small tubular densities are present in the right lower quadrant some adjacent to the tip of the cecum. These however appear to continue as the small bowel. Has the patient had a prior appendectomy? There are post hysterectomy changes. There is no convincing evidence of appendicitis. If clinical findings are inconclusive then, would consider repeating exam with with IV and oral contrast. Multiple unopacified bowel loops in the abdomen or pelvis which could obscure or mimic pathology. If symptoms persist, consider repeat exam with IV and oral contrast. No intestinal obstruction or free air. No evidence of diverticulitis. There is diverticulosis of the colon. Post hysterectomy changes. Small umbilical hernia containing fat. Mild degenerative changes lumbar spine. IMPRESSION: 1. No definite acute finding. 2. Multiple unopacified bowel loops in the abdomen or pelvis which could obscure or mimic pathology. If symptoms persist, consider repeat exam with IV and oral contrast. 3. Atelectasis or infiltrate within the lingula Dictated by: Allan Nixon MD 12/07/2019 09:09 Electronically signed by Allan Nixon MD in [place] 12/07/2019 09:09
--- NOTE | 2019-12-06 18:47 | HMH.EDNVD ---
ED Disposition Clinical Impression: Gastroenteritis Disposition: Home, Self-Care Condition on Discharge: Good Instructions: DI for Diarrhea and Traveler's Diarrhea -- Adult, DI for Diarrhea and Traveler's Diarrhea -- Child, DI for Nausea -- Adult, DI for Nausea -- Child Prescriptions: Ondansetron [Zofran 4mg ODT] 4 mg PO TID PRN 4 Days #15 tab.rapdis PRN Reason: Nausea Transmission Status: Pending to [facility] Referrals: Román Multani MD [Primary Care Provider] - - Critical Care Critical Care Time: No Attestation: On 12/06/19, the high probability of a clinically significant, sudden or life threatening deterioration of the following system(s) required my full and direct attention, intervention and personal management. The time I documented below is in addition to time spent performing reported procedures but includes the following listed in this critical care notation. Medical Decision Making - Medical Records Medical records reviewed: Yes: I reviewed the patient's medical records. - Ramesh Inquiry Pt receiving controlled substance: No - Lab Data Lab results reviewed: Yes: I reviewed the patient's lab results. Lab Results 12/06/19 18:20: WBC 9.9, RBC 3.86 L, Hgb 12.5, Hct 38.8, MCV 100.7 H, MCH 32.3 H, MCHC 32.1, RDW 14.2, Plt Count 245, MPV 9.1, Neut % (Auto) 87.0 H, Lymph % (Auto) 8.4 L, Lanier % (Auto) 3.3, Eos % (Auto) 0.9, Baso % (Auto) 0.4, Neut # (Auto) 8.6 H, Lymph # (Auto) 0.8, Lanier # (Auto) 0.3, Eos # (Auto) 0.1, Baso # (Auto) 0.0, Total Counted 100, Neutrophils % (Manual) 92 H, Band Neutrophils % 4.0, Lymphocytes % (Manual) 4 L, Platelet Estimate Normal, Macrocytosis 1+, Rouleaux 1+ 12/06/19 18:20: Sodium 137, Potassium 4.6, Chloride 98, Carbon Dioxide 31 H, Anion Gap 12.6, BUN 26 H, Creatinine 2.00 H, Estimated Creat Clear 29, Estimated GFR 24 L, Est GFR ( Amer) 29 L, Glucose 138 H, Calcium 9.1, Total Bilirubin 0.7, AST 21, ALT 11 L, Alkaline Phosphatase 134 H, Total Protein 9.1 H, Albumin 4.8, Globulin 4.3 H, Albumin/Globulin Ratio 1.1, Amylase 58 12/06/19 18:20: Troponin I < 0.01, Lipase 28 Result diagrams: 12/06/19 18:20 12/06/19 18:20 Orders (Tests/Meds): ED MEDICATIONS Generic Name Dose Route Start Last Admin Trade Name Freq PRN Reason Stop Dose Admin Sodium Chloride 1,000 mls @ 999 mls/hr 12/06/19 19:15 12/06/19 19:15 Sod Chlor 0.9% 1000ml Bag IV 12/06/19 20:15 999 mls/hr .Q1H1M JIHAN Administration Discontinued Medications Generic Name Dose Route Start Last Admin Trade Name Freq PRN Reason Stop Dose Admin Ondansetron HCl 4 mg 12/06/19 18:25 12/06/19 18:10 Zofran 4mg/2ml Vial IV 12/06/19 18:26 4 mg ONCE ONE Administration ORDERS Category Date Time Status CT abdomen pelvis wo con Stat Cat Scan 12/06/19 18:24 Taken Troponin I Q3H Lab 12/06/19 21:30 Ordered Troponin I Q3H Lab 12/07/19 00:30 Ordered - CT Data CT Scan: Abdomen, Pelvis Time Received: 19:[address] Reviewed: Yes: I have viewed the radiologist's interpretation Preliminary Findings: Normal/NAD Nausea/Vomiting/Diarrhea HPI - General Chief complaint: Nausea/Vomiting/Diarrhea Stated complaint: nausea, vomiting Time Seen by Provider: 12/06/19 18:47 - History of Present Illness HPI Narrative: 84-year-old female presents the ED with an acute onset of nausea vomiting with no diarrhea. Patient states that this started yesterday with nausea and the vomiting started today. She states she is had 4 episodes of emesis today. She is also complaining about some substernal burning sensation after vomiting. Patient does state that she has eaten out a couple times the last few days. She states that 1 of the meals that she did have she did feel sick after that meal and then 24 hours later this illness did start. Patient denies any recent fever shakes or chills.Patient denies any recent cough or shortness of breath, patient denies any sore throat or headache, patient denies any
--- NOTE | 2019-12-06 18:48 | PC.NURSE ---
pt is gone to rad
[2019-12-06 18:49] LABS: Basophils % 0.4 % (0.1-2.0); Eosinophils # 0.1 K/mm3 (0.0-0.4); Eosinophils % 0.9 % (0.1-12.0); Hematocrit 38.8 % (37.0-47.0); Hemoglobin 12.5 g/dL (12.2-16.2); Lymphocytes # 0.8 K/mm3 (0.7-4.5); Lymphocytes % 8.4 % (10-50); Mean Corpuscular HGB Conc 32.1 g/dL (31.8-35.4); Mean Corpuscular Hemoglobin 32.3 pg (27.0-31.2); Mean Corpuscular Volume 100.7 fl (81-99); Mean Platelet Volume 9.1 fl (7.4-10.4); Monocytes # 0.3 K/mm3 (0.1-1.0); Monocytes % 3.3 % (1.7-9.3); Neutrophils # 8.6 K/mm3 (1.8-7.8); Platelet Count 245 K/mm3 (142-424); Red Blood Count 3.86 M/mm3 (4.20-5.40); Red Cell Distribution Width 14.2 % (11.5-17.5); White Blood Count 9.9 K/mm3 (4.8-10.8)
[2019-12-06 18:52] LABS: MANUAL DIFFERENTIAL MANUAL DIFFERENTIAL (MANUAL DIFF)
[2019-12-06 18:59] LABS: Alanine Aminotransferase 11 U/L (12-78); Albumin Level 4.8 g/dl (3.5-5.0); Albumin/Globulin Ratio 1.1 (1.1-1.8); Alkaline Phosphatase 134 U/L (38-126); Amylase 58 U/L (30-110); Anion Gap 12.6 mEq/L (5-15); Aspartate Amino Transferase 21 U/L (14-36); Bilirubin,Total 0.7 mg/dl (0.2-1.3); Blood Urea Nitrogen 26 mg/dl (7-17); Calcium 9.1 mg/dl (8.4-10.2); Carbon Dioxide 31 mmol/L (22.0-30.0); Chloride 98 mmol/L (98-107); Creatinine Clearance Estimated 29 mL/min (50-200); Estimated Glomerular Filt Rate 24 ml/min (>60); GFR (African American) 29 ML/MIN (>60); Globulin 4.3 g/dL (1.3-3.2); Glucose 138 mg/dl (74-100); Potassium 4.6 mmoL/L (3.5-5.1); Sodium 137 mmol/L (136-145); Total Protein,Serum 9.1 g/dl (6.3-8.2)
[2019-12-06 19:06] LABS: Lymphocytes % 4 % (10-50); Macrocytosis 1+; Neutrophils % 92 % (42-76); Platelet Estimate Normal; Rouleaux 1+; Total Cells Counted 100
[2019-12-06 19:09] LABS: Lipase 28 U/L (23-300)
[2019-12-06 19:24] LABS: Troponin I < 0.01 ng/ml (0.00-0.034)
[2019-12-06 19:54] VITALS: BP 142/70; PULSE 73; RESP 19; TEMP 36.9; O2SAT 98
--- NOTE | 2019-12-06 19:57 | PC.NURSE ---
Upon entering pt's room to obtain d/c vitals and d/c pt's IV, IV had infiltrated and swelling was noted in the left antecubital area. RN was notified at this time for assessment.
== END 2019-12-06 19:57 | disposition home or self-care (01) ==
PROVIDERS: Emergency Provider Family Medicine; PCP Internal Medicine Adolescent Medicine
DX: K52.9 Noninfective gastroenteritis and colitis, unspecified (principal); I48.20 Chronic atrial fibrillation, unspecified; J44.9 Chronic obstructive pulmonary disease, unspecified; E11.9 Type 2 diabetes mellitus without complications; Z99.81 Dependence on supplemental oxygen; E78.5 Hyperlipidemia, unspecified; I10 Essential (primary) hypertension; F17.210 Nicotine dependence, cigarettes, uncomplicated; Z95.0 Presence of cardiac pacemaker; Z90.49 Acquired absence of other specified parts of digestive tract; Z90.79 Acquired absence of other genital organ(s)
CPT/HCPCS: 36415; 74176; 80053; 82150; 83690; 84484; 85007; 85025; 93005; 96365; 96375; 99282; 99283; J2405

== ENCOUNTER → 2019-12-24 10:28 | Outpatient (CLI) | payer OTHER, MEDICARE, SELFPAY ==
[2019-12-24 11:22] LABS: Chloride 106 mmol/L (98-107); Potassium 4.1 mmoL/L (3.5-5.1); Sodium 143 mmol/L (136-145)
[2019-12-24 11:25] LABS: Anion Gap 14.1 mEq/L (5-15); Blood Urea Nitrogen 32 mg/dl (7-17); Calcium 8.7 mg/dl (8.4-10.2); Carbon Dioxide 27 mmol/L (22.0-30.0); Estimated Glomerular Filt Rate 27 ml/min (>60); GFR (African American) 33 ML/MIN (>60); Glucose 121 mg/dl (74-100)
[2019-12-24 11:34] LABS: NT Pro Brain Natriuretic Pep. 3910 pg/mL (0-450)
== END ==
PROVIDERS: Visit Provider Physician Assistant
DX: R06.09 Other forms of dyspnea (principal); I27.20 Pulmonary hypertension, unspecified; R05 Cough; R60.0 Localized edema
CPT/HCPCS: 36415; 80048; 83880

== ENCOUNTER 2020-05-04 15:41 | Emergency (ER) | payer MEDICARE, SELFPAY ==
[2020-05-04 15:45] VITALS: BP 122/55; PULSE 69; RESP 18; TEMP 36.5; O2SAT 94; BMI 27.4
--- NOTE | 2020-05-04 16:18 | XR_ITS ---
PROCEDURE: XR KNEE RT 3V CLINICAL INDICATION: fall Posttraumatic pain COMPARISON: CR [id number] [id number] [id number]-LT from 03/07/2016 FINDINGS: No fracture or dislocation. No lytic or blastic change. There is normal mineralization. There are mild tricompartmental osteoarthritic changes with mild lateral translation of the tibia by approximately 5 mm. There is a small suprapatellar effusion. Other findings:None. IMPRESSION: Osteoarthritis with knee joint effusion Dictated by: Allan Nixon MD 05/04/2020 17:36 Allan Nixon MD in [place] 05/04/2020 17:36
--- NOTE | 2020-05-04 16:21 | HMH.EDUTC ---
[facility] [place] Disposition Clinical Impression: Right knee sprain Qualifiers: Encounter type: initial encounter Involved ligament of knee: other ligament Qualified Code(s): S83.8X1A - Sprain of other specified parts of right knee, initial encounter Disposition: Home, Self-Care Condition on Discharge: Good Instructions: How to Choose and Use a Walker, How to Choose and Use a Wheelchair, How To Perform RICE (Rest, Ice, Compress, Elevate), How to Use a Knee Immobilizer Additional Instructions: weight bearing as tolerated *RICE, Rest the extremity, Ice 15-20 minutes 3-4 times daily, Compress- wear the saul wrap as discussed as much as possible to help reduce swelling and pain, Elevate the extremity when at rest *Knee immobilizer is for support and help control swelling, use it except in the shower. Be sure that is not to tight but not to loose either and use your walker or wheel chair to get around and go to the bathroom *Elevate when resting on pillows this will help with pain and swelling *Take your prescribed pain medication as prescribed Immediately follow up with your family doctor for new or worsening of symptoms, or no noticeable improvement over the next 3-[address] Culp's office tomorrow morning for appointment Return if needed Straight to ER if any life threatening symptoms FOllow up with your Family Doctor if needed Referrals: Román Multani MD [Primary Care Provider] - As needed Harrison Culp MD [Staff Physician] - As needed (Call office in the morning for appointment) Time of Disposition: 17:15 Medical Decision Making - Ramesh Inquiry Pt receiving controlled substance: No Ramesh was queried for this patient: No Vital Signs: 05/04/20 15:45 05/04/20 17:26 Temperature 97.7 F 97.6 F Temperature Source Oral Pulse Rate 70 Pulse Rate [Left Radial] 69 Respiratory Rate 18 16 Blood Pressure 122/55 L Blood Pressure [Left Arm] 122/55 L Blood Pressure Mean [Left Arm] 77 Blood Pressure Source [Left Arm] Automatic Cuff Blood Pressure Position [Left Arm] Sitting 02 Sat by Pulse Oximetry 94 L Oxygen Delivery Method Nasal Cannula - Radiology Data #1 Image(s): Knee Image Reviewed: Yes I reviewed the patient's radiology image w/the ED provider Preliminary Findings: No Fracture Seen - Physician Consults Physician Consulted: Robbi Time: 17:03 Reason -: Orthopedic Eval/Care Comment/Response: Spoke with Dr Culp and he advised to place in knee immobilizer, patient has walker and wheelchair at home, RICE and call office tomorrow morning for appointement [facility] [place] HPI - General Stated complaint: AO 05/04@0930@home behind R Knee Time Seen by Provider: 05/04/20 16:21 Mode of Arrival: Wheelchair Source of Information: Patient Limitations: No Limitations Description of Symptoms (Recalled from Triage Doc. by RN): c/o pain behind R knee after a fall earlier today. Pt reports was getting up from the couch and fell - History of Present Illness Provider Complaint: Patient state that she was sleeping on the couch this morning and she woke up and sit on the couch for awhile and she stood up and went to walk and her right knee gave out State that she has walked on it at home but ever since she has been having pain in the back of her knee in the bend and hurts when she walks on it Denies any other injury - Related Data Home Medications Medication Instructions Recorded Confirmed aspirin 81 mg tablet,delayed 81 mg PO DAILY 06/24/17 12/06/19 release budesonide-formoterol HFA 160 2 puff INHALATION Q12H 08/20/17 12/06/19 mcg-4.5 mcg/actuation aerosol inhaler omeprazole 20 mg capsule,delayed 20 mg PO DAILY cap 08/20/17 12/06/19 release diazePAM [Diazepam 2mg tablets] 2 mg PO BIDP PRN 12/15/17 12/06/19 Albuterol Sulfate [Albuterol 2.5 mg IH Q4H 10/05/19 12/06/19 0.083% 2.5mg/3mL neb] Sacubitril/Valsartan [Entresto 1 tab PO BID 10/05/19 12/06/19 24/26mg Tablet] diltiazem HCl 60 mg tablet 60 mg PO BI
[2020-05-04 17:26] VITALS: BP 122/55; PULSE 70; RESP 16; TEMP 36.4; O2SAT 97
== END 2020-05-04 17:29 | disposition home or self-care (01) ==
PROVIDERS: Emergency Provider Nurse Practitioner; PCP Internal Medicine Adolescent Medicine
DX: S83.8X1A Sprain of other specified parts of right knee, initial encounter (principal); W01.0XXA Fall on same level from slipping, tripping and stumbling without subsequent striking against object, initial encounter; Y92.019 Unspecified place in single-family (private) house as the place of occurrence of the external cause; Z87.891 Personal history of nicotine dependence; Z88.2 Allergy status to sulfonamides; Z88.5 Allergy status to narcotic agent
CPT/HCPCS: 29505; 73562; 99203

== ENCOUNTER → 2020-05-11 10:39 | Outpatient (CLI) | payer MEDICARE, SELFPAY ==
--- NOTE | 2020-05-11 10:49 | XR_ITS ---
PROCEDURE: XR ANKLE RT MIN 3V CLINICAL INDICATION: ACUTE RT ANKLE PAIN COMPARISON: No exams were available for comparison FINDINGS: No fracture or dislocation. No lytic or blastic change. There is normal mineralization. There is mild soft tissue swelling medially. There is some cortical regularity of the tip of the medial malleolus consistent with degenerative changes. No acute fracture or dislocation. There are degenerative changes at the calcaneocuboid joint. Other findings:None. IMPRESSION: Degenerative changes with soft tissue swelling, no acute fracture Dictated by: Allan Nixon MD 05/11/2020 16:20 Allan Nixon MD in [place] 05/11/2020 16:20
== END ==
PROVIDERS: PCP Internal Medicine Adolescent Medicine; Visit Provider Internal Medicine Adolescent Medicine
DX: M25.571 Pain in right ankle and joints of right foot (principal)
CPT/HCPCS: 73610